=== PATIENT | female | born 1945 | race Caucasian/White ===

== ENCOUNTER → 2023-10-22 11:41 | Outpatient (REF) | payer MEDICARE, OTHER, SELFPAY ==
[2023-10-22 13:26] LABS: % Basophils 0.3 % (0-2); % Eosinophils 5.1 % (0-6); % Immature Granulocytes 0.1 % (0-0.5); % Lymphocytes 51.3 % (20.5-51.1); % Monocytes 7.1 % (1.7-9.3); % Neutrophils 36.1 % (42.2-75.2); Absolute Eosinophils 0.5 10^3/uL (0-0.7); Absolute Lymphocytes 4.6 10^3/uL (1.2-3.4); Absolute Monocytes 0.6 10^3/uL (0.1-0.6); Absolute Neutrophils 3.2 10^3/uL (1.4-6.5); Hematocrit 38.8 % (37.0-47.0); Hemoglobin 12.7 g/dL (12.0-16.0); Mean Corp Hgb Conc. 32.7 g/dL (33.0-37.0); Mean Corpuscular Volume 88.6 fL (81.0-99.0); Nucleated Red Blood Cells % 0 %; Platelet Count 240 10^3/uL (130-400); Red Blood Cell Count 4.38 10^6/uL (4.20-5.40); Red Cell Dist. Width 14.3 % (11.5-14.5)
[2023-10-22 13:38] LABS: Urine Albumin 1+ (Neg - Trace); Urine Bilirubin 1+ (Negative); Urine Character Clear (Clear); Urine Color Yellow; Urine Glucose Negative (Negative); Urine Ketone Trace (Negative); Urine Leukocyte 1+ (Negative); Urine Nitrite Negative (Negative); Urine Occult Blood Negative (Negative); Urine Urobilinogen Negative (Neg - 1+)
[2023-10-22 13:52] LABS: Urine Bacteria Few (Negative)
[2023-10-22 14:40] LABS: ALT (SGPT) 23 U/L (0-35); AST (SGOT) 32 U/L (14-36); Albumin 4.1 g/dl (3.5-5.0); Alkaline Phosphatase 112 U/L (38-126); Blood Urea Nitrogen 28 mg/dl (7-17); Calcium 9.2 mg/dl (8.4-10.2); Carbon Dioxide 22 mmol/L (22-30); Chloride 101 mmol/L (98-107); Glucose 98 mg/dl (70-99); HDL Cholesterol 88 mg/dl; Iron 126 ug/dl (37-170); LDL Cholesterol, Calculated 94 mg/dl; Potassium 4.5 mmol/L (3.5-5.1); Sodium 130 mmol/L (135-145); Total Cholesterol 220 mg/dl (50-199); Total Protein 7.8 g/dl (6.3-8.2); Triglyceride 194 mg/dl (10-149); Very Low Density Lipoprotein 38 mg/dl (0-30); eGFR 38.03
[2023-10-22 14:49] LABS: Percent Saturation 34 % (20-50); Total Iron Binding Capacity 369 ug/dl (265-497)
[2023-10-22 16:10] LABS: Free T3 3.58 pg/ml (2.77-5.27); Free T4 1.05 ng/dl (0.78-2.19)
[2023-10-22 16:23] LABS: TSH 2.27 uIU/ml (0.47-4.68)
[2023-10-22 16:27] LABS: Ferritin 30.7 ng/ml (11.1-264.0)
[2023-10-24 15:00] LABS: Total T3 (Sendout) 125 ng/dL (80-200)
== END ==
LOC: REG 11:41
PROVIDERS: ATTENDING PHYSICIAN Physician Assistant; FAMILY PHYSICIAN Nurse Practitioner; OTHER PHYSICIAN Specialist; REFERRING PHYSICIAN Internal Medicine Cardiovascular Disease
DX: G89.29 Other chronic pain (principal); E05.90 Thyrotoxicosis, unspecified without thyrotoxic crisis or storm; N17.9 Acute kidney failure, unspecified; N18.31 Chronic kidney disease, stage 3a; I10 Essential (primary) hypertension; N20.0 Calculus of kidney
CPT/HCPCS: 36415; 80053; 80061; 81003; 81015; 82728; 83540; 83550; 84439; 84443; 84480; 84481; 85025

== ENCOUNTER → 2023-11-02 07:22 | Outpatient (REF) | payer MEDICARE, OTHER, SELFPAY ==
[2023-11-02] MEDS: LEXISCAN 0.400000000000000022 MG IV (09:14)
== END ==
LOC: RCS 07:22
PROVIDERS: ATTENDING PHYSICIAN Internal Medicine Cardiovascular Disease; FAMILY PHYSICIAN Nurse Practitioner
DX: G89.29 Other chronic pain (principal); R94.31 Abnormal electrocardiogram [ECG] [EKG]
CPT/HCPCS: 78452; 93017; A9500; J2785

== ENCOUNTER → 2023-11-12 10:18 | Outpatient (REF) | payer MEDICARE, OTHER, SELFPAY ==
[2023-11-12 12:11] LABS: % Basophils 0.1 % (0-2); % Eosinophils 6.8 % (0-6); % Immature Granulocytes 0.3 % (0-0.5); % Lymphocytes 54.7 % (20.5-51.1); % Monocytes 7.8 % (1.7-9.3); % Neutrophils 30.3 % (42.2-75.2); Absolute Eosinophils 0.5 10^3/uL (0-0.7); Absolute Monocytes 0.6 10^3/uL (0.1-0.6); Absolute Neutrophils 2.2 10^3/uL (1.4-6.5); Hematocrit 39.2 % (37.0-47.0); Hemoglobin 12.9 g/dL (12.0-16.0); Mean Corp Hgb Conc. 32.9 g/dL (33.0-37.0); Mean Corpuscular Hgb 28.9 pg (27.0-31.0); Mean Corpuscular Volume 87.7 fL (81.0-99.0); Mean Platelet Volume 9.9 fL (7.4-10.4); Nucleated Red Blood Cells % 0 %; Platelet Count 355 10^3/uL (130-400); Red Blood Cell Count 4.47 10^6/uL (4.20-5.40); Red Cell Dist. Width 15.4 % (11.5-14.5); White Blood Cell Count 7.4 10^3/uL (4.8-10.8)
[2023-11-12 12:38] LABS: ALT (SGPT) 20 U/L (0-35); AST (SGOT) 28 U/L (14-36); Alkaline Phosphatase 114 U/L (38-126); Blood Urea Nitrogen 28 mg/dl (7-17); Carbon Dioxide 21 mmol/L (22-30); Chloride 105 mmol/L (98-107); Glucose 106 mg/dl (70-99); Potassium 4.7 mmol/L (3.5-5.1); Sodium 139 mmol/L (135-145); Total Protein 7.7 g/dl (6.3-8.2); eGFR 45.76
[2023-11-12 13:10] LABS: Erythrocyte Sed Rate 37 mm/hour (0-20)
== END ==
LOC: REG 10:18
PROVIDERS: ATTENDING PHYSICIAN Nurse Practitioner; FAMILY PHYSICIAN Internal Medicine Rheumatology; REFERRING PHYSICIAN Specialist
DX: L40.0 Psoriasis vulgaris (principal); L40.50 Arthropathic psoriasis, unspecified; M79.7 Fibromyalgia; M81.0 Age-related osteoporosis without current pathological fracture; R76.8 Other specified abnormal immunological findings in serum; Z51.81 Encounter for therapeutic drug level monitoring; I10 Essential (primary) hypertension; N18.31 Chronic kidney disease, stage 3a; E87.1 Hypo-osmolality and hyponatremia
CPT/HCPCS: 36415; 80053; 85025; 85652; 86140; 86480

== ENCOUNTER → 2023-12-11 10:26 | Outpatient (REF) | payer MEDICARE, OTHER, SELFPAY ==
[2023-12-11 17:25] LABS: Urine Albumin 1+ (Neg - Trace); Urine Bilirubin Negative (Negative); Urine Character Clear (Clear); Urine Color Yellow; Urine Glucose Negative (Negative); Urine Ketone Negative (Negative); Urine Leukocyte Negative (Negative); Urine Nitrite Negative (Negative); Urine Occult Blood 2+ (Negative); Urine Specific Gravity 1.015 (<1.030); Urine Urobilinogen Negative (Neg - 1+)
[2023-12-11 17:35] LABS: Urine Bacteria Moderate (Negative); Urine Red Blood Cell 0-2 /HPF (0-2); Urine White Cell 0-2 /HPF (0-5)
== END ==
LOC: CLAB 10:26
PROVIDERS: ATTENDING PHYSICIAN Nurse Practitioner
DX: N39.0 Urinary tract infection, site not specified (principal)
CPT/HCPCS: 81003; 81015; 87086

== ENCOUNTER → 2023-12-11 13:50 | Outpatient (REF) | payer MEDICARE, OTHER, SELFPAY | LOC: RAD 13:50 | PROVIDERS: ATTENDING PHYSICIAN Physician Assistant; FAMILY PHYSICIAN Nurse Practitioner | DX: E04.1 Nontoxic single thyroid nodule (principal) | CPT/HCPCS: 76536 ==

== ENCOUNTER → 2023-12-31 12:58 | Outpatient (REF) | payer MEDICARE, OTHER, SELFPAY | LOC: RAD 12:58 | PROVIDERS: ATTENDING PHYSICIAN Internal Medicine Rheumatology; FAMILY PHYSICIAN Nurse Practitioner | DX: M81.0 Age-related osteoporosis without current pathological fracture (principal) | CPT/HCPCS: 77080 ==

== ENCOUNTER → 2024-03-04 14:39 | Outpatient (REF) | payer MEDICARE, OTHER, SELFPAY ==
[2024-03-04 16:42] LABS: % Basophils 0.3 % (0-2); % Eosinophils 6.8 % (0-6); % Immature Granulocytes 0.3 % (0-0.5); % Lymphocytes 45.6 % (20.5-51.1); % Monocytes 10.5 % (1.7-9.3); % Neutrophils 36.5 % (42.2-75.2); Absolute Eosinophils 0.5 10^3/uL (0-0.7); Absolute Lymphocytes 3.4 10^3/uL (1.2-3.4); Absolute Monocytes 0.8 10^3/uL (0.1-0.6); Absolute Neutrophils 2.7 10^3/uL (1.4-6.5); Hematocrit 34.8 % (37.0-47.0); Hemoglobin 11.4 g/dL (12.0-16.0); Mean Corp Hgb Conc. 32.8 g/dL (33.0-37.0); Mean Corpuscular Hgb 29.3 pg (27.0-31.0); Mean Corpuscular Volume 89.5 fL (81.0-99.0); Nucleated Red Blood Cells % 0 %; Platelet Count 292 10^3/uL (130-400); Red Blood Cell Count 3.89 10^6/uL (4.20-5.40); Red Cell Dist. Width 15.4 % (11.5-14.5); White Blood Cell Count 7.3 10^3/uL (4.8-10.8)
[2024-03-04 17:00] LABS: C-Reactive Protein < 5.00 mg/L (0.0-10.00)
[2024-03-04 17:10] LABS: ALT (SGPT) 19 U/L (0-35); AST (SGOT) 28 U/L (14-36); Albumin 3.8 g/dl (3.5-5.0); Alkaline Phosphatase 135 U/L (38-126); Blood Urea Nitrogen 25 mg/dl (7-17); Carbon Dioxide 24 mmol/L (22-30); Chloride 103 mmol/L (98-107); Glucose 101 mg/dl (70-99); Sodium 140 mmol/L (135-145); Total Bilirubin 0.7 mg/dl (0.2-1.3); Total Protein 7.3 g/dl (6.3-8.2); eGFR 56.95
[2024-03-04 17:40] LABS: Erythrocyte Sed Rate 42 mm/hour (0-20)
== END ==
LOC: REG 14:39
PROVIDERS: ATTENDING PHYSICIAN Internal Medicine Rheumatology; FAMILY PHYSICIAN Nurse Practitioner
DX: L40.50 Arthropathic psoriasis, unspecified (principal); M05.9 Rheumatoid arthritis with rheumatoid factor, unspecified; M79.7 Fibromyalgia; M81.0 Age-related osteoporosis without current pathological fracture; R76.8 Other specified abnormal immunological findings in serum; Z51.81 Encounter for therapeutic drug level monitoring
CPT/HCPCS: 36415; 80053; 85025; 85652; 86140

== ENCOUNTER → 2024-04-22 15:04 | Outpatient (REF) | payer MEDICARE, OTHER, SELFPAY ==
[2024-04-22 16:39] LABS: % Basophils 0.2 % (0-2); % Immature Granulocytes 0.3 % (0-0.5); % Lymphocytes 35.1 % (20.5-51.1); % Monocytes 9.1 % (1.7-9.3); % Neutrophils 50.3 % (42.2-75.2); Absolute Eosinophils 0.5 10^3/uL (0-0.7); Absolute Lymphocytes 3.3 10^3/uL (1.2-3.4); Absolute Monocytes 0.9 10^3/uL (0.1-0.6); Absolute Neutrophils 4.7 10^3/uL (1.4-6.5); Hematocrit 36.6 % (37.0-47.0); Hemoglobin 11.7 g/dL (12.0-16.0); Mean Corpuscular Hgb 28.7 pg (27.0-31.0); Mean Corpuscular Volume 89.7 fL (81.0-99.0); Mean Platelet Volume 9.6 fL (7.4-10.4); Nucleated Red Blood Cells % 0 %; Platelet Count 236 10^3/uL (130-400); Red Blood Cell Count 4.08 10^6/uL (4.20-5.40); Red Cell Dist. Width 16.1 % (11.5-14.5); White Blood Cell Count 9.4 10^3/uL (4.8-10.8)
[2024-04-22 16:54] LABS: ALT (SGPT) 20 U/L (0-35); AST (SGOT) 25 U/L (14-36); Iron 74 ug/dl (37-170)
[2024-04-22 17:03] LABS: Percent Saturation 20 % (20-50); Total Iron Binding Capacity 365 ug/dl (265-497)
[2024-04-22 17:12] LABS: Free T3 4.21 pg/ml (2.77-5.27); Free T4 0.97 ng/dl (0.78-2.19)
[2024-04-22 17:25] LABS: TSH 5.96 uIU/ml (0.47-4.68)
[2024-04-22 17:29] LABS: Ferritin 24.1 ng/ml (11.1-264.0)
[2024-04-25 03:21] LABS: Total T3 (Sendout) 133 ng/dL (80-200)
== END ==
LOC: REG 15:04
PROVIDERS: ATTENDING PHYSICIAN Physician Assistant
DX: E05.90 Thyrotoxicosis, unspecified without thyrotoxic crisis or storm (principal); N18.30 Chronic kidney disease, stage 3 unspecified; F41.9 Anxiety disorder, unspecified
CPT/HCPCS: 36415; 82728; 83540; 83550; 84439; 84443; 84450; 84460; 84480; 84481; 85025

== ENCOUNTER → 2024-06-23 14:12 | Outpatient (REF) | payer MEDICARE, OTHER, SELFPAY | LOC: HWRAD 14:12 | PROVIDERS: ATTENDING PHYSICIAN Nurse Practitioner Family | DX: R05.9 Cough, unspecified (principal) | CPT/HCPCS: 71046 ==

== ENCOUNTER → 2024-07-23 14:29 | Outpatient (REF) | payer MEDICARE, OTHER, SELFPAY ==
[2024-07-23 15:28] LABS: Urine Albumin 3+ (Neg - Trace); Urine Bilirubin Negative (Negative); Urine Character Slightly Cloudy (Clear); Urine Color Yellow; Urine Glucose Negative (Negative); Urine Ketone Negative (Negative); Urine Leukocyte 3+ (Negative); Urine Nitrite Negative (Negative); Urine Occult Blood 4+ (Negative); Urine Specific Gravity 1.015 (<1.030); Urine Urobilinogen Negative (Neg - 1+)
[2024-07-23 15:52] LABS: Urine Bacteria Few (Negative); Urine Red Blood Cell 26-30 /HPF (0-2); Urine White Cell 70-80 /HPF (0-5)
== END ==
LOC: REG 14:29
PROVIDERS: ATTENDING PHYSICIAN Urology
DX: R39.9 Unspecified symptoms and signs involving the genitourinary system (principal)
CPT/HCPCS: 81003; 81015; 87086

== ENCOUNTER → 2024-08-01 14:03 | Outpatient (REF) | payer MEDICARE, OTHER, SELFPAY | LOC: HWRAD 14:03 | PROVIDERS: ATTENDING PHYSICIAN Urology | DX: R39.9 Unspecified symptoms and signs involving the genitourinary system (principal); M54.9 Dorsalgia, unspecified; R30.0 Dysuria | CPT/HCPCS: 76775 ==

== ENCOUNTER → 2024-08-29 16:36 | Outpatient (REF) | payer MEDICARE, OTHER, SELFPAY | LOC: HWRAD 16:36 | DX: J18.9 Pneumonia, unspecified organism (principal) | CPT/HCPCS: 71046 ==

== ENCOUNTER → 2024-09-08 13:00 | Outpatient (REF) | payer MEDICARE, OTHER, SELFPAY ==
[2024-09-08 16:28] LABS: % Basophils 0.5 % (0-2); % Eosinophils 1.8 % (0-6); % Immature Granulocytes 3.4 % (0-0.5); % Neutrophils 61.3 % (42.2-75.2); Absolute Basophils 0.1 10^3/uL (0-0.2); Absolute Eosinophils 0.2 10^3/uL (0-0.7); Absolute Immature Granulocytes 0.4 10^3/uL (0-0.05); Absolute Lymphocytes 2.7 10^3/uL (1.2-3.4); Absolute Neutrophils 6.9 10^3/uL (1.4-6.5); Hematocrit 38.4 % (37.0-47.0); Hemoglobin 12.2 g/dL (12.0-16.0); Mean Corp Hgb Conc. 31.8 g/dL (33.0-37.0); Mean Corpuscular Hgb 29.4 pg (27.0-31.0); Mean Corpuscular Volume 92.5 fL (81.0-99.0); Mean Platelet Volume 10.6 fL (7.4-10.4); Nucleated Red Blood Cells % 0.2 %; Platelet Count 329 10^3/uL (130-400); Red Blood Cell Count 4.15 10^6/uL (4.20-5.40); Red Cell Dist. Width 16.6 % (11.5-14.5); White Blood Cell Count 11.3 10^3/uL (4.8-10.8)
[2024-09-08 16:36] LABS: ALT (SGPT) 31 U/L (0-35); AST (SGOT) 44 U/L (14-36); Albumin 3.3 g/dl (3.5-5.0); Alkaline Phosphatase 142 U/L (38-126); Blood Urea Nitrogen 30 mg/dl (7-17); Calcium 8.9 mg/dl (8.4-10.2); Carbon Dioxide 29 mmol/L (22-30); Chloride 100 mmol/L (98-107); Glucose 103 mg/dl (70-99); Iron 90 ug/dl (37-170); Potassium 4.8 mmol/L (3.5-5.1); Sodium 135 mmol/L (135-145); Total Bilirubin 1.2 mg/dl (0.2-1.3); Total Protein 6.4 g/dl (6.3-8.2); eGFR 34.79
[2024-09-08 16:45] LABS: Percent Saturation 40 % (20-50); Total Iron Binding Capacity 225 ug/dl (265-497)
[2024-09-08 16:53] LABS: Vitamin D, 25-OH*** 33.3 ng/mL (30-80)
[2024-09-08 17:06] LABS: TSH Reflex To Free T4 3.16 uIU/ml (0.47-4.68)
[2024-09-08 17:42] LABS: Folate > 20.0 ng/ml (2.76-20); Vitamin B12 666 pg/ml (239-931)
== END ==
LOC: HWLAB 13:00
DX: I95.1 Orthostatic hypotension (principal); R42 Dizziness and giddiness; D64.9 Anemia, unspecified; M47.816 Spondylosis without myelopathy or radiculopathy, lumbar region; M70.62 Trochanteric bursitis, left hip; N18.30 Chronic kidney disease, stage 3 unspecified
CPT/HCPCS: 36415; 80053; 82306; 82607; 82728; 82746; 83540; 83550; 84443; 85025

== ENCOUNTER → 2024-09-19 15:47 | Outpatient (REF) | payer MEDICARE, OTHER, SELFPAY | LOC: HWRAD 15:47 | DX: M25.521 Pain in right elbow (principal); M25.511 Pain in right shoulder | CPT/HCPCS: 73030; 73080 ==

== ENCOUNTER → 2024-11-14 13:35 | Outpatient (REF) | payer MEDICARE, OTHER, SELFPAY | LOC: HWRCS 13:35 | DX: I95.1 Orthostatic hypotension (principal); R42 Dizziness and giddiness | CPT/HCPCS: 93306 ==

== ENCOUNTER 2024-12-23 18:04 | Inpatient (IN) | payer MEDICARE, OTHER, SELFPAY ==
[2024-12-23] VITALS (8 sets, daily range): BP systolic 95–129; BP diastolic 38–73; BMI 38.3; BMI 36.6
[2024-12-23 14:22] LABS: Urine Character Slightly Cloudy (Clear)
[2024-12-23 14:45] LABS: Hematocrit 28.2 % (37.0-47.0); Hemoglobin 9.3 g/dL (12.0-16.0); Mean Corp Hgb Conc. 33.0 g/dL (33.0-37.0); Mean Corpuscular Volume 93.4 fL (81.0-99.0); Platelet Count 247 10^3/uL (130-400); Red Cell Dist. Width 19.3 % (11.5-14.5)
[2024-12-23 14:51] LABS: ALT (SGPT) 16 U/L (0-35); AST (SGOT) 28 U/L (14-36); Albumin 3.3 g/dl (3.5-5.0); Alkaline Phosphatase 115 U/L (38-126); Blood Urea Nitrogen 100 mg/dl (7-17); Calcium 7.7 mg/dl (8.4-10.2); Carbon Dioxide 9 mmol/L (22-30); Chloride 108 mmol/L (98-107); Estimated Creatinine Clearance 7 ml/min; Glucose 106 mg/dl (70-99); Potassium 5.8 mmol/L (3.5-5.1); Sodium 136 mmol/L (135-145); Total Protein 6.4 g/dl (6.3-8.2); eGFR 5.39
[2024-12-23 15:28] LABS: Normal RBC Morphology No; Platelets Checked Yes
[2024-12-23 15:30] LABS: Acanthocytes 1+; Anisocytosis 1+; Macrocytosis 1+; Total Cells Counted 100
[2024-12-23 15:34] LABS: Absolute Neutrophils -Man Diff 0.6 10^3/uL (1.4-6.5)
--- NOTE | 2024-12-23 15:49 | ED.GENMED ---
History of Present Illness
General
Chief Complaint: Change in Mental Status
Source: patient
Exam Limitations: none
Time Seen by Provider: 12/23/24 14:54
Nursing documentation reviewed up to this point in time: agreed with
History of Present Illness
History of Present Illness:
Patient presents to ED for an evaluation after she lost balance in her backyard, and fell onto her side. Patient with recent fall and subsequent left shoulder fracture, being treated conservatively with arm sling, states that her pain is worse
after the fall. Denies any other injuries. Of note, patient has experienced confusion over the past couple weeks, noted by family members. In addition, patient has ongoing painful mouth ulcers, which has not improved with antibiotics. Denies
fever or chills. Denies coughing. Denies vomiting or diarrhea. Denies dizziness. Denies headache. In addition, recent outpatient blood work had revealed slight worsening of renal function.
Past History
Past History
ED Past Medical History: HTN, Hypercholesterolemia, Other (rheumatoid arthritis) and Other (Hypertension hyperlipidemia rheumatoid arthritis cholecystectomy hysterectomy bilateral knee replacements chronic back pain with a stimulator and pain
management,)
ED Past Surgical History: Cholecystectomy, Gynecological (Hysterectomy) and Other (Abdominoplasty, knee surgery )
Social History
Tobacco: Non-smoker
Alcohol: Occasional
Drug: None
Personal:
Living: with family
Family History
Family History: Other (Father with prostate cancer mother with breast cancer)
Review of Systems
Review of Systems
Allergies reviewed?: Yes
All Other Systems: ROS reviewed and negative except as documented in HPI and ROS
Constitutional: Reports no symptoms
Respiratory: Reports no symptoms
Cardiac: Reports no symptoms
ABD/GI: Reports no symptoms; Denies nausea or vomiting
Musculoskeletal: Reports other (shoulder pain)
Skin: Reports other (mouth ulcer)
Neurological: Reports other (confusion); Denies dizzy, headache or weakness
Phy Exam
Physical Exam
Physical Exam:
Physical Exam
General: mild painful distress, not acutely ill. afebrile
Head: nc/at. eomi
Neck: supple. normal range of motion
Heart: s1/s2 regular rate and rhythm
Lungs: no acute respiratory distress. clear bilaterally
Abdomen: normal bowel sounds. not tender.
Neuro: alert and oriented x 3. no focal neurological deficits
Skin: no rash
Psychiatric: well kept. interactive and cooperative
Extremities: diffuse left/right shoulder tenderness to palpation without obvious deformity.
Course
Orders/Labs/Results
Orders:
Orders
12/23/24 Breakfast
Regular
At Your Request: Full Participation
12/23/24 14:10
Electrocardiogram (*1) Urgent
Reason for Study: Other
Other Reason for Exam: Possible Sepsis
Cardiac Monitoring- Treatment ONCE
EKG- Treatment ONCE
O2 Therapy [RESP] Urgent
Titrate/Wean O2 to maintain O2 sat greater than (%): 93
Special Instructions: TO MAINTAIN CONTINUOUS O2 SATS > OR = 93%
Pulse Ox/cont/shift [RESP] Urgent
Quantity: 1
Special Instructions: CONTINUOUS
12/23/24 14:11
Complete Blood Count/With Diff Urgent
Comprehensive Metabolic Panel Urgent
Ferritin Urgent
Comment: ADD ON
Folate Urgent
Comment: ADD ON
Iron Urgent
Comment: ADD ON
Manual Differential Urgent
Total Iron Binding Urgent
Comment: ADD ON
Urinalysis Reflex To Culture Urgent
Date Specimen was Collected: 12/23/24
Time Specimen was Collected: 14:10
Urine Microscopic Reflex Cult Urgent
Vitamin B12 Urgent
Comment: ADD ON
12/23/24 15:40
0.9% Sodium Chloride 1000 ml [Nss] 1,000 ml IV BOLUS
12/23/24 16:00
Acetaminophen [Tylenol] 650 mg PO NOW STA
12/23/24 16:37
Add On- LAB Urgent
Tests Added?: iron, ferritin, tibc, folate, vit b12
12/23/24 16:58
Protein/Creat Ratio (Random) Routine
Urine Creatinine Routine
Urine Sodium Routine
Renal Only US [US Renal Only W/O Bladder] Routine
Comment:
Reason For Exam: NADIRA
12/23/24 17:00
Sterile Water For Inj [Sterile Water For Injection 1000 ml] 1,000 ml Sodium Bicarbonate 150 meq IV 125 mls/hr
12/23/24 17:03
Admit/Transfer Patient As Directed
Co-Sign Provider:
Level of Care: Inpatient admission
Assign to:: Telemetry
Physician / Group: Donna
Diagnosis: NADIRA, Hyperkalemia, Metabolic Acidosis
Reason for Telemetry: Arrhythmia
Date to Stop Telemetry: 12/26/24
Time to Stop Telemetry: 11:00
Reason for Hospitalization: IVFs
Expected length of stay greater than two midnights?: Yes
ELOS- Estimated Length of Stay in days: 3
I certify the patient meets the requirements for IP care: Yes
PRN Pain Medication Management As Directed
May give lesser potent ordered pain med per pt: Yes
preference::
Protocol:: Medication orders for pain may be administered in a
manner that supports deferring to patient preference
when the pt is:
- Requesting an ordered lesser potent pain medication.
Least to most potent pain medications are defined
as: acetaminophen < NSAID < tramadol < opioids
(morphine, oxycodone, hydromorphone).
- Requesting a lesser dose of the same medication IF
ORDERED.
- Requesting a less intrusive route of administration
if both routes are prescribed by the provider (PO <
IV).
12/23/24 17:04
Code Status As Directed
Resuscitation Status: Full Code
12/23/24 17:34
COVID-19 Antigen Urgent
Source: Nasal Swab
Blood Culture Q30M
MOLINA Source: Blood/Venous
Specimen Description:
Blood Culture Q30M
MOLINA Source: Blood/Venous
Specimen Description:
12/23/24 17:41
Obtain Records As Directed
Dates of Information to be Released: September 2024
Type of Information Requested: Lab Results
If Other, list type of info requested: Viral and Bacteria Culture from Oral Lesions
Obtain Records from: [facility]
12/23/24 18:14
Oxycodone [Roxicodone] 5 mg PO Q4HPRN PRN
12/26/24 11:00
DC Protocol for Telemetry ONCE
Abnormal Lab Results
12/23/24
14:11
WBC 1.3 L* 10^3/uL
(4.8-10.8)
RBC 3.02 L 10^6/uL
(4.20-5.40)
Hgb 9.3 L g/dL
(12.0-16.0)
Hct 28.2 L %
(37.0-47.0)
RDW 19.3 H %
(11.5-14.5)
Abs Neuts (Manual) 0.6 L* 10^3/uL
(1.4-6.5)
Band Neutrophils 7 H %
(0-3)
Potassium 5.8 H mmol/L
(3.5-5.1)
Chloride 108 H mmol/L
(98-107)
Carbon Dioxide 9 L* mmol/L
(22-30)
BUN 100 H mg/dl
(7-17)
Creatinine 7.1 H* mg/dL
(0.6-1.0)
Glucose 106 H mg/dl
(70-99)
Calcium 7.7 L mg/dl
(8.4-10.2)
TIBC 210 L ug/dl
(265-497)
% Saturation 19 L %
(20-50)
Ferritin 722.0 H ng/ml
(11.1-264.0)
Albumin 3.3 L g/dl
(3.5-5.0)
Ur Occult Blood Reflex 2+ A
(Negative)
Urine Bilirubin 1+ A
(Negative)
Urine RBC 7-10 A /HPF
(0-2)
Urine Albumin (Reflex) 3+ A
(Neg - Trace)
12/23/24 14:11
12/23/24 14:11
Vital Signs
Initial and Last Documented VS:
Initial Vital Signs
Pulse BP
79 129/42
12/23/24 13:26 12/23/24 13:26
Last Documented Vital Signs
Temp Pulse Resp BP Pulse Ox
98.9 F 74 15 95/73 100
12/23/24 13:30 12/23/24 17:45 12/23/24 17:45 12/23/24 17:00 12/23/24 17:30
MDM/Problems Addressed
MDM/Problems Addressed:
History and exam, along with blood work concerning for acute renal failure on chronic renal insufficiency with metabolic acidosis, likely secondary to poor oral intake and dehydration. No evidence of infection noted on exam. No indication for
antibiotics. Patient will be provided with IV fluids and to be admitted for further evaluation and treatment. Patient remains afebrile, hemodynamically stable, and mentally competent during observation.
*Pulse Oximetry
SaO2: 97
Oxygen Mode of Delivery: Room air
Patient hypoxic: no
*Critical Care Note
Total Time (30-74mins, 75-104mins- exclusive of procedures): Not Applicable
ED Attending Note
-
Portions of this chart may have been created with voice recognition software.� Occasional wrong word or��sound alike� substitutions may have occurred due to the inherent limitations of voice recognition software.
Discharge Plan
Departure
Patient Disposition: Admit
Date of Disposition: 12/23/24
Time of Disposition: 15:52
Admit to: Telemetry
Presentation/result/management discussed w/ accepting MD/DO: Hospitalist
Discharge Problem:
Acute renal failure (ARF), Metabolic acidosis, Oral ulcer
Interventions
Interventions:
*Risk Screen - Suicide Last Done: 12/23/24 13:30
*General Assessment Last Done: 12/23/24 13:30
*Neglect/Abuse Screening Last Done: 12/23/24 13:30
*ED COVID-19 Vaccine History Last Done: 12/23/24 13:42
ED- Neurological Assessment Last Done: 12/23/24 14:21
ED- Cardiac Assessment Last Done: 12/23/24 14:26
ED Swallowing Screen Last Done: 12/23/24 16:10
[2024-12-23] MEDS: NSS 1000 IV (16:11)
[2024-12-23] MEDS: TYLENOL 650 MG PO (16:11)
--- NOTE | 2024-12-23 16:23 | W.CON.NEPH ---
Consultation
-
Date/Time Consultation Requested: 12/23/2024 4 PM
Date/Time Consultation Performed: 12/23/2024 4 PM
Requesting Provider: Dr. Thompson
Performing Provider: Dr. Canada
Reason for Consultation: NADIRA
Medical History
-
Chief Complaint: Failure to thrive
History of Present Illness:
This is a 79-year-old female who is well-known to me as an outpatient for chronic kidney disease stage IIIb, baseline creatinine running approximately 1.2�1.5. She seems to have some chronic mild proteinuria as an outpatient. She has hypertension
previously on a multidrug regimen though currently only on a mild therapy regimen with metoprolol. She had previously been on losartan though this was discontinued because of orthostasis and beta-fadi was used for palpitations. She no longer
has significant orthostasis by her report. She has longstanding rheumatoid arthritis on methotrexate with folic acid. This has been stable. About 2 months ago she developed oral ulcers and her oral intake precipitously dropped. By her 's
report she has probably lost 15 pounds or more in those 8 weeks time. About 2 weeks ago she had start Aricept for memory but this did cause diarrhea for 5 days before it was identified as the cause and discontinued. She then had a fall at physical
therapy on and was recommended to take Motrin 600 mg every 6 hours which she did for the next 2 days time. She discontinued Motrin on Sunday. Because of persistent failure to thrive he was brought to the emergency room for evaluation.
Her creatinine was noted to be elevated at 7.1 with a BUN 100 and bicarbonate 9. She also had hyperkalemia at 5.8. She also is leukopenic.
Past Medical History
chronic back pain on chronic oral opiates
RA
HTN
HLD
GERD
morbid obesity
anxiety
depression
restless leg syndrome
Bilateral knee replacements
Back stimulator patient does not have currently on or charged
Left rotator cuff repair by Dr. Orlando December 2022
Cholecystectomy
Hysterectomy
Abdominoplasty
Social History
Tobacco: Non-Smoker
Alcohol: Occasional
Family History
Family History: Cancer
Allergies / Home Medications
Allergy/AdvReac Type Severity Reaction Status Date / Time
iodine Allergy Anaphylaxis Verified 12/23/24 13:29
morphine (Morphine) Allergy Rash Verified 12/23/24 13:29
�Medication �Instructions �Recorded �Confirmed �Type
duloxetine 60 mg capsule,delayed 60 mg PO HS Neurological Condition 01/27/19 12/23/24 History
release
rosuvastatin 40 mg tablet (Crestor) 40 mg PO HS High Cholesterol 01/27/19 12/23/24 History
aripiprazole 5 mg tablet 2.5 mg PO HS Neurological Condition 04/27/23 12/23/24 History
folic acid 1 mg tablet 1 mg PO HS Supplement 04/27/23 12/23/24 History
methimazole 5 mg tablet 2.5 mg PO Q48H@2000 Hormonal Agent 04/27/23 12/23/24 History
cetirizine 10 mg tablet (Zyrtec) 10 mg PO DAILY 12/23/24 12/23/24 History
diphenhydramine HCl 25 mg capsule 25 mg PO DAILYPRN PRN ALLERGIES 12/23/24 12/23/24 History
(Benadryl)
donepezil 5 mg tablet 5 mg PO HS 12/23/24 12/23/24 History
methotrexate sodium 2.5 mg tablet 15 mg PO MO 12/23/24 12/23/24 History
metoprolol succinate 25 mg 25 mg PO BID 12/23/24 12/23/24 History
tablet,extended release 24 hr
(Toprol XL)
mirabegron 50 mg tablet,extended 50 mg PO DAILY 12/23/24 12/23/24 History
release 24 hr (Myrbetriq)
oxycodone 10 mg tablet 10 mg PO TIDPRN PRN SEVERE PAIN 12/23/24 12/23/24 History
pantoprazole 20 mg tablet,delayed 20 mg PO DAILY 12/23/24 12/23/24 History
release (Protonix)
sennosides 8.6 mg tablet (senna) 8.6 mg PO BIDPRN PRN CONSTIPATION 12/23/24 12/23/24 History
Physical Exam
Vital Signs
Vital Signs
Temp Pulse Resp BP Pulse Ox
98.9 F 76 20 116/38 99
12/23/24 13:30 12/23/24 16:15 12/23/24 16:15 12/23/24 16:01 12/23/24 16:15
Lab Results
WBC 1.3 10^3/uL (4.8-10.8) L* 12/23/24 14:11
RBC 3.02 10^6/uL (4.20-5.40) L 12/23/24 14:11
Hgb 9.3 g/dL (12.0-16.0) L 12/23/24 14:11
Hct 28.2 % (37.0-47.0) L 12/23/24 14:11
Plt Count 247 10^3/uL (130-400) 12/23/24 14:11
Sodium 136 mmol/L (135-145) 12/23/24 14:11
Potassium 5.8 mmol/L (3.5-5.1) H 12/23/24 14:11
Chloride 108 mmol/L (98-107) H 12/23/24 14:11
Carbon Dioxide 9 mmol/L (22-30) L* 12/23/24 14:11
BUN 100 mg/dl (7-17) H 12/23/24 14:11
Creatinine 7.1 mg/dL (0.6-1.0) H* 12/23/24 14:11
eGFR 5.39 12/23/24 14:11
Glucose 106 mg/dl (70-99) H 12/23/24 14:11
Calcium 7.7 mg/dl (8.4-10.2) L 12/23/24 14:11
Albumin 3.3 g/dl (3.5-5.0) L 12/23/24 14:11
Laboratory Tests
09/08/24
13:17
Sodium 135
Potassium 4.8
Carbon Dioxide 29
BUN 30 H
Creatinine 1.5 H
Physical Exam
Patient is awake alert oriented and in no distress. Mood and affect were pleasant, insight and judgment were good. Pupils are equal round and reactive to light, extraocular movements are intact, sclera were anicteric. Hearing was normal, ears and
nose are intact. Oropharynx was dry. Neck was supple with trachea midline and no thyromegaly. Heart was regular rate and rhythm without rubs. Lower extremities without edema. Lungs were clear to auscultation bilaterally and with normal excursion.
Abdomen was soft, nontender, with normal active bowel sounds, and no hepatosplenomegaly. Skin was without rash and with normal turgor.
Data Reviewed
-
Radiology: Image Personally Visualized and interpreted (Shoulder x-ray 12/18/2024 by my reading no fracture)
Ultrasound: Report Reviewed by me (Renal ultrasound 08/01/2024 right kidney 11.3 cm left kidney 10.9 cm, left cyst)
Medical Tests (Nuc Med, Echo etc): Image Personally Visualized and interpreted (EKG 12/23/2024 by reading normal sinus rhythm incomplete right bundle branch block) and Report Reviewed by me (Echocardiogram 11/14/2024 ejection fraction 55% mild )
Labs: Labs Reviewed by me
Old Records: Reviewed
Assessment/Plan
-
Assessment
NADIRA
azotemia
Aphthous ulceration
Poor oral intake
Hyperkalemia
Anion gap metabolic acidosis
Rheumatoid arthritis
Leukopenia
Anemia
Hypertension
Plan
IV fluid resuscitation
Saline bolus
bicarbonate IV fluid infusion
Check fractional excretion sodium
Off NSAIDs
No further diarrhea
Conservative management aphthous ulcers
Encourage oral intake
Check urine protein creatinine ratio
Renal ultrasound
Repeat urinalysis once creatinine has improved
Given the timeline it is possible that she may develop ATN and we will need to trend her creatinine carefully
We discussed the possibility of dialysis if the creatinine fails to improve. I suspect she would except this.
Discussed with patient and family
--- NOTE | 2024-12-23 16:40 | HPS.HSE ---
Family Physician
-
Family Physician: THOMAS Colon
Chief Complaint
-
Increased Confusion
History of Present Illness
Patient is an 79 y/o female past medical history of hypertension, hyperlipidemia, rheumatoid arthritis, hyperthyroidism, anxiety/depression and cognitive impairment who presents with increased confusion. Additional history is obtained from
patient's daughter at the bedside. Patient began experiencing mouth sores back in September. Per daughter they used mouth rise, and PCP did prescribe triamcinolone which patient did not tolerate. Patient was seen at urgent care and scraping was
positive for bacteria and virus for which patient was treated with Augmentin without any improvement. Patient reports poor oral intake due to the mouth pain. Patient was also experiencing diarrhea after starting Aricept which has resolved since
stopping that medication. Last patient sustained a fall injuring her left shoulder. Per family has a small fracture which ortho is managing with a sling and she was instructed to take Motrin for pain. Daughter note patient seemed more
confused on Sunday which she attributed to patient's being out of town and a change in her routine. Today patent sustained another fall outside prompting them to bring her to the emergency department for evaluation. Work-up revealed
Creatinine 7.1.
Medical History
Past Medical History
Past Medical History: Reports Other
Additional Past Medical History:
Essential Hypertension
Hyperlipidemia
CKD Stage III
Rheumatoid Arthritis
Chronic Pain with Opioid Dependence
Hyperthyroidism
Cognitive Impairment
Anxiety/Depression
Overactive Bladder
GERD
Past Surgical History: Reports Other
Additional Past Surgical History:
Left Rotator Cuff Repair
Left Reverse Shoulder Replacement
Bilateral Knee Replacements
Lumbar Fusion
Spinal Pain Stimulator
Abdominoplasty and Breast Reduction
Hysterectomy
Cholecystectomy
Social History
Tobacco: Non-smoker
Alcohol: Occasional
Family History
Family History: Not pertinent
Allergies / Home Medications
Allergies reflects when Allergies were last updated in [employer].
Home Medications with original date entered in [employer]
Allergy/Medication List:
Allergies
Allergy/AdvReac Type Severity Reaction Status Date / Time
iodine Allergy Anaphylaxis Verified 12/23/24 13:29
morphine (Morphine) Allergy Rash Verified 12/23/24 13:29
Home Medications
duloxetine 60 mg capsule,delayed release 60 mg PO HS Neurological Condition 01/27/19
rosuvastatin 40 mg tablet (Crestor) 40 mg PO HS High Cholesterol 01/27/19
aripiprazole 5 mg tablet 2.5 mg PO HS Neurological Condition 04/27/23
folic acid 1 mg tablet 1 mg PO HS Supplement 04/27/23
methimazole 5 mg tablet 2.5 mg PO Q48H@1999 Hormonal Agent 04/27/23
cetirizine 10 mg tablet (Zyrtec) 10 mg PO DAILY 12/23/24
diphenhydramine HCl 25 mg capsule (Benadryl) 25 mg PO DAILYPRN PRN ALLERGIES 12/23/24
methotrexate sodium 2.5 mg tablet 15 mg PO MO 12/23/24
metoprolol succinate 25 mg tablet,extended release 24 hr (Toprol XL) 25 mg PO BID 12/23/24
mirabegron 50 mg tablet,extended release 24 hr (Myrbetriq) 50 mg PO DAILY 12/23/24
oxycodone 10 mg tablet 10 mg PO TIDPRN PRN SEVERE PAIN 12/23/24
pantoprazole 20 mg tablet,delayed release (Protonix) 20 mg PO DAILY 12/23/24
sennosides 8.6 mg tablet (senna) 8.6 mg PO BIDPRN PRN CONSTIPATION 12/23/24
Review of Systems
-
A 12 point ROS was completed and negative except as noted: Yes
Constitutional: Denies Fever or Chills
Respiratory: Denies Cough or Trouble Breathing
Cardiac: Denies Chest Pain or Palpitations
Abdomen/GI: Denies Abdominal Pain, Nausea, Vomiting or Diarrhea
Physical Exam
Vital Signs
Vital Signs
Temp Pulse Resp BP Pulse Ox
98.9 F 76 20 116/38 99
12/23/24 13:30 12/23/24 16:15 12/23/24 16:15 12/23/24 16:01 12/23/24 16:15
Physical Exam
General: Comfortable and Conversant
HEENT: Anicteric and Other
Respiratory: Clear and Non Labored Respirations
Cardiac: S1/S2 and Regular Rhythm
GI: Soft and Non Tender
Rectal: Deferred by Provider
Genito-urinary: Clear Urine
Musculoskeletal: No Clubbing, No Cyanosis and No Edema
Skin: Warm and Dry
Neuro: Awake, Alert, Oriented and Nonfocal/grossly intact
Psych: Calm
Laboratory Results
-
12/23/24 14:11
12/23/24 14:11
Laboratory Results
Total Bilirubin 0.9 mg/dl (0.2-1.3) 12/23/24 14:11
AST 28 U/L (14-36) 12/23/24 14:11
ALT 16 U/L (0-35) 12/23/24 14:11
Alkaline Phosphatase 115 U/L (38-126) 12/23/24 14:11
Data Reviewed
-
Lab Data: Labs Reviewed by me
Impression/Plan
-
Acute Kidney Injury on CKD III
Hyperkalemia
Metabolic Acidosis
-Suspect multifactorial related to poor oral intake, recent diarrhea and NSAID use
-Consult Nephrology
-Continue IVFs with sodium bicarb
-Check renal ultrasound
-Recheck labs in AM
Leukopenia/Neutropenia/Anemia, possibly related to methotrexate
-Hold methotrexate
-Check iron studies, folate, vitamin B12
-Consult Hematology
Aphthous Mouth Ulcers
-Add Magic Mouthwash PRN
Recent Left Shoulder Fracture
-Continue immobilization with sling as per ortho
-Continue Tylenol and Oxycodone prn
-Avoid further NSAIDs
Essential Hypertension
-Continue metoprolol with hold parameters
Hyperlipidemia
-Continue Crestor
Rheumatoid Arthritis
-Hold Methotrexate
Chronic Pain with Opioid Dependence s/p Spinal Stimulator
-Continue oxycodone prn
Hyperthyroidism
-Continue Methimazole
Anxiety/Depression
-Continue Abilify and Duloxetine
GERD
-Continue Protonix
DVT proph: SCDs
Code Status: Full Code
[2024-12-23 17:29] LABS: Iron 40 ug/dl (37-170)
[2024-12-23 17:49] LABS: Total Iron Binding Capacity 210 ug/dl (265-497)
--- NOTE | 2024-12-23 17:58 | W.PN.UPDATE ---
Update Note
Progress Note Update
This is an addendum to H&P written by Kristie Landrum on 12/23/2024. Patient seen and examined independently with PA.
79-year-old female past medical history of CKD 3B, rheumatoid arthritis on methotrexate, chronic pain syndrome/opiate dependence, hypertension, GERD, hyperlipidemia, chronic normocytic anemia, anxiety/depression, restless leg syndrome, presenting
for acute confusion and fall.
Ongoing sores in the mouth. She went to urgent care and had scrapings performed and was treated with Augmentin for 1 week without improvement. She tried triamcinolone mouth rinse without improvement. ENT looked in the throat without any
abnormalities.
Vital signs normal.
Labs show white cell count of 1.3. Hemoglobin of 9.3.
Bicarb of 9. Creatinine of 7.1. Potassium 5.8.
Patient with acute kidney injury, anion gap metabolic acidosis likely secondary to decreased p.o. intake, recent diarrhea, NSAIDs. Bicarb drip, renal ultrasound, bladder scan protocol. Nephrology consulted.
Patient with leukopenia/neutropenia and anemia seems to be related to methotrexate. Check iron studies, B12 and folate. Hematology consulted. Hold methotrexate.
Patient with aphthous ulcers related to immunodeficiency. Already completed antibiotic for bacterial infection. Obtaining records from urgent care since she had culture done there.. May require Valtrex.
[2024-12-23 18:09] LABS: Ferritin 722.0 ng/ml (11.1-264.0)
[2024-12-23] MEDS: SODIUM BICARBONATE 1150 MEQ IV (18:10)
[2024-12-23 18:19] LABS: COVID-19 Antigen Negative (Negative)
[2024-12-23] MEDS: ROXICODONE 5 MG PO (18:38)
[2024-12-23 18:40] LABS: Folate 8.1 ng/ml (2.76-20); Vitamin B12 553 pg/ml (239-931)
[2024-12-23] MEDS: ABILIFY 2.5 MG PO (21:51)
[2024-12-23] MEDS: CRESTOR 40 MG PO (21:51)
[2024-12-23] MEDS: CYMBALTA DELAYED RELEASE 60 MG PO (21:51)
[2024-12-23] MEDS: FOLVITE 1 MG PO (21:51)
[2024-12-23] MEDS: TOPROL XL 25 MG PO (21:51)
--- NOTE | 2024-12-23 22:15 | PTCARENOTE ---
Patient arrived from ED, via stretcher. Patiet slid from stretcher to bed. AAO x 3. VSS. Patient complaining of 6/10 left shoulder pain. IV bicarb running at 125 ml/hr. Wounds noted on assessment including mouth sores and rectal sores. Wound
consulted. Patient incontinent of bowel and bladder. Last BM 12/22/24. Patient belongings accounted for including, phone, phone dermatology physician, left arm sling, sneakers, pants, and shirt. Patient with no medications from home. Patient oriented to room. Bed
alarm in place. Bed in lowest position. Call renee and personal belongings within reach.
.
00
[2024-12-24] VITALS (51 sets, daily range): BP systolic 61–132; BP diastolic 27–95; PULSE 75; O2SAT 98; BMI 38.1; BMI 36.6
--- NOTE | 2024-12-24 04:01 | PTCARENOTE ---
bladder scan for 126 ml. no straight cath intervention.
[2024-12-24] MEDS: SODIUM BICARBONATE 1150 MEQ IV (04:08)
[2024-12-24] MEDS: PROTONIX 20 MG PO (08:04)
[2024-12-24] MEDS: TOPROL XL 25 MG PO (08:04)
[2024-12-24] MEDS: TYLENOL 650 MG PO (08:08)
--- NOTE | 2024-12-24 08:53 | W.PN.HOSP.TC ---
Addendum entered and electronically signed by Ivone Plascencia MD 12/24/24 15:19:
I saw and evaluated the patient independently. I reviewed the resident�s note and agree with findings and plan as documented by Dr. Hernandez.
GENERAL: well developed, well nourished, obese female in no apparent distress
HEENT:NC/AT--dry mucus membranes--no O2
HEART: regular rate and rhythm, +S1, +S2
LUNGS : clear to auscultation bilaterally
ABDOM: soft, nontender, nondistended, + bowel sounds
EXT: no cyanosis, clubbing, or edema
NEUROLOGIC: confused but nonfocal
NADIRA with metabolic acidosis--AGAP 19--possibly due to sepsis--pt immunosuppressed and on MTX for RA--looks clinically dehydrated--likely multifactorial (prerenal-dehydration, postrenal-obstruction but US neg for hydro, renal-from MTX, ATN, NSAID
use, etc)--cont IVF with bicarb--apprec renal--apparently no urine output and now hypotensive--BP dropping--developing sepsis--transfer to IMU--may need pressors, may need HD--agree with noa--blood cultures positive for gm neg bacilli--cont zosyn
and follow cultures
sepsis--Leukopenia in the setting of Gram Negative Bacilli Infection--start zosyn--follow--hold MTX--apprec heme/onc input--follow cultures
Left shoulder pain--Status post fall--there is documentation of previous fracture that ortho is managing--pt should be in sling--she is NOT in sling here--cannot move arm due to pain--would check CT scan left shoulder--may need ortho rec-evaluation
oral ulcers--likely due to MTX--would stop--cont folic acid--magic mouthwash
Rheumatoid Arthritis--STOP methotrexate (home medication)
Chronic Back Pain--limit oxycodone (home medication) due to hypotension
Overactive Bladder--STOP mirabegron
Essential Hypertension--all meds on hold with hypotension
Cognitive Impairment with increasing confusion--possibly due to NADIRA, sepsis, hypotension, or dementia--cont duloxetine, aripiprazole as able
Gastroesophageal Reflux Disease--Continue pantoprazole (home medication)
Hyperlipidemia--Continue rosuvastatin (home medication)
DVT proph
code status--FULL CODE
Dr. Hernandez updated family
Total Critical Care Time 38 minutes. I was immediately available to the patient and staff. I personally examined, reviewed labs, diagnostic images/reports, interpretations, treatment plans, discussed patient care with other providers and family
or caregivers (if patient is unable to make decisions), entered orders as appropriate and documented the medical record.
Original Note:
Today's Communication/Plan
-
Please be aware of patient's prior history of C. diff infection
Transferred to the IMU
Assessment / Plan
Assessment / Plan
Assessment
This is an 79 y/o female with pmhx of Hypertension, Rheumatoid Arthritis on methotrexate, mouth ulcers, CKD 3b, cognitive impairment and recent increasing confusion who presented to the ED on 12/23 following a fall. She was found to have critically
low white blood cell counts, and blood cultures were positive for gram negative bacilli.
Plan
Status post fall
-Pt on Benadryl for allergies. She should stop this medication and be advised that this can contribute to falls
-Ordered CT w/o contrast of left upper extremity
Leukopenia in the setting of Gram Negative Bacilli Infection
-Will closely follow blood cultures
-Given patient's history of chronic methotrexate use and creatinine of 7.1 on admission, ordered Zosyn 2.25gram IV Q6H (Renal dose).
-Patient's blood pressures did decrease during the course of her admission. She was moved to the IMU and given an initial 500mL NS bolus, followed by a 1L bolus when no improvement was shown
-Will re-evalute antibiotic to something more appropriate once blood cultures return
Rheumatoid Arthritis
-STOP methotrexate (home medication)
Chronic Back Pain
-Continue oxycodone (home medication)
Overactive Bladder
-STOP mirabegron
Acute on Chronic Kidney Disease 3B
-Possible prerenal (infection) vs intrarenal (history of Motrin use) vs postrenal (Mirabegron) cause
-Baseline creatinine between 1.2-1.5, 7.1 on admission
-Ordered Bladder scan
-Holding mirabegron
-Consulted with nephrology
Hypertension
-Patient currently with hypotension in the setting of her infection
-HOLD metoprolol (home medication) until BP improves (Current parameters: hold if SBP <120)
Cognitive Impairment with increasing confusion
-Continue duloxetine, aripiprazole
Gastroesophageal Reflux Disease
-Continue pantoprazole (home medication)
Hyperlipidemia
-Continue rosuvastatin (home medication)
Anticipated Discharge: > 48 hours
Subjective/Interval History
-
Date of Service: December 24, 2024
When I went in patient was alone. Her daughter and had been there earlier from her report, but she wasn�t sure where they went or when they would be back. She did say it was alright if I spoke to them about her health. She seemed very
confused, and was able to tell me her date but could not tell me the current date or where she was, even with prompting about day of the week or month. She would occasionally lose focus during the conversation and lapse into silence, and had
some difficulty following conversations and prompting.
I later spoke extensively with her [id number], Dasha via phone. Dasha reported that 8 weeks ago, patient began to have issues with mouth ulcers. They followed up with several physicians, including an urgent care who did a scraping of the
tissue which revealed an unspecified virus and bacteria. The urgent care prescribed her Augmentin, which was completed around 3 weeks ago.
Around 3 weeks ago, the patient also began to experience some mild confusion. They saw her neurologist, who prescribed her aripiprazole. However, patient reported diarrhea not long after which was attributed to this medication. They stopped the
medication after 5 days, and the diarrhea reportedly resolved not long after.
Around 1 week ago, she fell while at home onto her left shoulder, which was previously replaced. Urgent care did an X-ray, which did not reveal any acute fractures. She was started on Motrin at that time. She had another fall at home also onto her
left shoulder on Sunday. This, combined with increasing confusion, ultimately led them to bring the patient to the ED on 12/23/2024.
The daughter also informed me the patient has a personal history of C. Diff infections which may not be present in her chart.
Objective Data
-
Labs:
Laboratory Results
12/24/24
06:00
WBC Pending
Hgb Pending
Hct Pending
Plt Count Pending
Sodium Pending
Potassium Pending
Chloride Pending
Carbon Dioxide Pending
BUN Pending
Creatinine Pending
Glucose Pending
Calcium Pending
Vital Signs:
Vital Signs
Temp Pulse Resp BP Pulse Ox
98.1 F 85 20 84/53 93
12/24/24 07:30 12/24/24 07:30 12/24/24 07:30 12/24/24 07:30 12/24/24 07:30
Review of Systems
-
Unable to obtain full review of systems at this time due to: Acuity (Patient with history of cognitive impairment with increased confusion)
History Source: Patient
EENT: Reports No Symptoms Reported
Respiratory: Reports No Symptoms
Cardiac: Reports No Symptoms
Abdomen/GI: Reports No Symptoms
Musculoskeletal: Reports Joint Pain (Bilateral shoulder pain) and Muscle Pain (Left arm down to elbow)
Physical Exam
-
General: Well Developed, No Apparent Distress and Obese
HEENT: Normocephalic and Atraumatic
Respiratory: Clear to Auscultation (Exam limited by patient's inability to rise from bed without significant pain. Examination of all lung thrasher heard in supine position were clear to auscultation)
Cardiac: Regular Rhythm and S1/S2
Skin: Warm and Dry
Neuro: Awake and Alert (Oriented only to person. )
Psych: Confused
--- NOTE | 2024-12-24 09:24 | CON.ONC ---
Documented by User: THOMAS Portillo 12/24/24 12:46
Consultation
-
Date Consultation Requested: 12/24/24
Date Consultation Performed: 12/24/24
Requesting Provider: Kristie Cox PA-C
Performing Provider: Dr. Frandy Rae
Reason for Consultation: cytopenias
Impression
Impression
a/w acute on chronic cognitive decline, wt loss, mouth ulcers, NADIRA on CKD
leukopenia/neutropenia
anemia
on chronic MTX for RA
mucocytis
Plan
Plan
cytopenias and mucositis likely from MTX toxicity. neutropenic precautions. check MTX level. Would hold off on GCSF until MTX level is clear. continue folic acid. Hold MTX and continue to monitor CBC for recovery, which may take several weeks. I
will also check B12, folate, iron studies, copper, and hemolysis panel. With anemia and NADIRA, I will check SPEP, FLC. If cytopenias persist despite holding MTX then refer to hematology outpatient evaluation. Further management of RA per rheumatology.
Patient History
History of Present Illness
79yo F with chronic cognitive impairment who presents with increased confusion and mechanical fall. She has been taking MTX >10 years for management of her RA. She tells me that her daughter helps her will pill management for safety. Initial
evaluation was notable for NADIRA on CKD, leukopenia, and anemia with WBC 1.3, ANC 600, Hgb 9.3g/dL, and Creatinine 7.1. She has had a decline in oral intake due to mouth ulcers since September 2024 resulting in a 15lb weight loss. She was treated with a
course of Augmentin and triamcinolone mouth rinse without improvement of her mouth sores outpatient. She had a mechanical fall last week. She has been taking NSAIDs for pain since her fall. She has been admitted and started on IVF.
Clinically, she report left shoulder pain controlled with immobility. She denies overt bleeding or typical bruising.
Afebrile, no hypoxia, hypotensive
Past-Medical/Surgical History
PMH
Essential Hypertension
Hyperlipidemia
CKD Stage III
Rheumatoid Arthritis
Chronic Pain with Opioid Dependence
Hyperthyroidism
Cognitive Impairment
Anxiety/Depression
Overactive Bladder
GERD
PSH
Left Rotator Cuff Repair
Left Reverse Shoulder Replacement
Bilateral Knee Replacements
Lumbar Fusion
Spinal Pain Stimulator
Abdominoplasty and Breast Reduction
Hysterectomy
Cholecystectomy
Social never smoker, no ETOH or recreational drugs. retired nurse.
Family daughter breast cancer, father prostate cancer
Patient Medication
�Medication �Instructions �Recorded �Confirmed �Last Taken �Type
duloxetine 60 mg capsule,delayed 60 mg PO HS Neurological Condition 01/27/19 12/23/24 12/22/24 History
release
rosuvastatin 40 mg tablet (Crestor) 40 mg PO HS High Cholesterol 01/27/19 12/23/24 12/22/24 History
aripiprazole 5 mg tablet 2.5 mg PO HS Neurological Condition 04/27/23 12/23/24 12/22/24 History
folic acid 1 mg tablet 1 mg PO HS Supplement 04/27/23 12/23/24 05/13/23 History
methimazole 5 mg tablet 2.5 mg PO Q48H@1999 Hormonal Agent 04/27/23 12/23/24 12/21/24 History
cetirizine 10 mg tablet (Zyrtec) 10 mg PO DAILY Allergies 12/23/24 12/23/24 12/23/24 History
diphenhydramine HCl 25 mg capsule 25 mg PO DAILYPRN PRN ALLERGIES 12/23/24 12/23/24 Unknown History
(Benadryl)
methotrexate sodium 2.5 mg tablet 15 mg PO MO CANCER/ARTHRITIS 12/23/24 12/23/24 12/22/24 History
metoprolol succinate 25 mg 25 mg PO BID Blood Pressure 12/23/24 12/23/24 12/22/24 History
tablet,extended release 24 hr
(Toprol XL)
mirabegron 50 mg tablet,extended 50 mg PO DAILY Urinary Issue 12/23/24 12/23/24 12/23/24 History
release 24 hr (Myrbetriq)
oxycodone 10 mg tablet 10 mg PO TIDPRN PRN SEVERE PAIN 12/23/24 12/23/24 Unknown History
pantoprazole 20 mg tablet,delayed 20 mg PO DAILY GERD 12/23/24 12/23/24 12/23/24 History
release (Protonix)
sennosides 8.6 mg tablet (senna) 8.6 mg PO BIDPRN PRN CONSTIPATION 12/23/24 12/23/24 Unknown History
Active Medications
Generic Name Dose Route Start Last Admin
Trade Name Freq PRN Reason Stop Dose Admin
Acetaminophen 650 mg 12/23/24 20:07 12/24/24 08:08
Acetaminophen 325 Mg Tablet PO 01/20/25 20:06 650 mg
Q4HPRN PRN Administration
mild pain/ fever>100.5F
Aripiprazole 2.5 mg 12/23/24 22:00 12/23/24 21:51
Aripiprazole 5 Mg Tablet PO 01/20/25 21:59 2.5 mg
HS TENISHA Administration
Duloxetine HCl 60 mg 12/23/24 22:00 12/23/24 21:51
Duloxetine Delayed Release 60 Mg Capsule PO 01/20/25 21:59 60 mg
HS TENISHA Administration
Folic Acid 1 mg 12/23/24 22:00 12/23/24 21:51
Folic Acid 1 Mg Tablet PO 01/20/25 21:59 1 mg
HS TENISHA Administration
Sodium Bicarbonate 150 meq/ 1,150 mls @ 125 mls/hr 12/23/24 17:00 12/24/24 04:08
Sterile Water IV 1,150 mls
.Q9H12M TENISHA Administration
Methimazole 2.5 mg 12/24/24 20:00
Methimazole 5 Mg Tablet PO 01/21/25 19:59
Q48H TENISHA
Metoprolol Succinate 25 mg 12/23/24 20:07 12/24/24 08:04
Metoprolol 25 Mg Extended Release Tablet PO 01/20/25 20:06 25 mg
BID TENISHA Administration
Multi-Ingredient Mouthwash/Gargle 10 ml 12/23/24 20:07
Magic (Miracle) Mouthwash 90 Ml Bottle PO
Q6HPRN PRN
mouth pain
Oxycodone HCl 5 mg 12/23/24 18:14 12/23/24 18:38
Oxycodone 5 Mg Regular Release Tablet PO 01/06/25 18:13 5 mg
Q4HPRN PRN Administration
severe pain
Pantoprazole Sodium 20 mg 12/24/24 08:00 12/24/24 08:04
Pantoprazole 20 Mg Delayed Release Tablet PO 01/21/25 07:59 20 mg
DAILY TENISHA Administration
Rosuvastatin Calcium 40 mg 12/23/24 22:00 12/23/24 21:51
Rosuvastatin (Crestor) 40 Mg Tablet PO 01/20/25 21:59 40 mg
HS TENISHA Administration
Sodium Chloride 0 flush 12/23/24 19:00
Sodium Chloride 0.9% (Flush) Syringe IV 01/20/25 18:59
PER PROTOCOL TENISHA
Review of Systems
-
unable to provided ROM due to confusion, history obtained via office records and chart review
Physical Exam
-
General: No Apparent Distress
HEENT: Other (dry mouth); Negative Jaundice
Cardiology: Normal Sinus Rhythm
Pulmonary: Clear
GI: Soft
Extremities: Pulses Present
Neurology: Non Focal
Skin: Warm
Psych: Calm
Labs
Lab Results
WBC 1.3 10^3/uL (4.8-10.8) L* 12/23/24 14:11
RBC 3.02 10^6/uL (4.20-5.40) L 12/23/24 14:11
Hgb 9.3 g/dL (12.0-16.0) L 12/23/24 14:11
Hct 28.2 % (37.0-47.0) L 12/23/24 14:11
MCV 93.4 fL (81.0-99.0) 12/23/24 14:11
MCH 30.8 pg (27.0-31.0) 12/23/24 14:11
MCHC 33.0 g/dL (33.0-37.0) 12/23/24 14:11
RDW 19.3 % (11.5-14.5) H 12/23/24 14:11
Plt Count 247 10^3/uL (130-400) 12/23/24 14:11
MPV 10.1 fL (7.4-10.4) 12/23/24 14:11
Creatinine 7.1 mg/dL (0.6-1.0) H* 12/23/24 14:11
Vital Signs
Vital Signs
Temp Pulse Resp BP Pulse Ox
98.1 F 85 20 84/53 93
12/24/24 07:30 12/24/24 07:30 12/24/24 07:30 12/24/24 07:30 12/24/24 07:30

Documented by User: Frandy Rae MD 12/24/24 13:23
Plan
Plan
cytopenias and mucositis likely from MTX toxicity. neutropenic precautions. check MTX level. Would hold off on GCSF until MTX level is clear. continue folic acid. Hold MTX and continue to monitor CBC for recovery, which may take several weeks. I
will also check B12, folate, iron studies, copper, and hemolysis panel. With anemia and NADIRA, I will check SPEP, FLC. If cytopenias persist despite holding MTX then refer to hematology outpatient evaluation. Further management of RA per rheumatology.
Hematology Addendum:
Patient seen and evaluated and agree w/ [facility] note and plan as outlined
-cytopenias/ mucositis - potentially related to MTX toxicity
-holding MTX w/ level pending
-follow CBC
Will continue to follow with you.
[2024-12-24] MEDS: NSS 250 IV (11:49)
[2024-12-24 12:06] LABS: ALT (SGPT) 15 U/L (0-35); AST (SGOT) 32 U/L (14-36); Albumin 2.5 g/dl (3.5-5.0); Alkaline Phosphatase 116 U/L (38-126); Blood Urea Nitrogen 110 mg/dl (7-17); Calcium 6.5 mg/dl (8.4-10.2); Carbon Dioxide 14 mmol/L (22-30); Chloride 103 mmol/L (98-107); Estimated Creatinine Clearance 7 ml/min; Glucose 86 mg/dl (70-99); LDH 269 U/L (120-246); Potassium 4.5 mmol/L (3.5-5.1); Sodium 132 mmol/L (135-145); Total Protein 5.2 g/dl (6.3-8.2); eGFR 5.21
[2024-12-24 12:12] LABS: Hematocrit 22.1 % (37.0-47.0); Hemoglobin 7.7 g/dL (12.0-16.0); Mean Corp Hgb Conc. 34.8 g/dL (33.0-37.0); Mean Corpuscular Volume 87.7 fL (81.0-99.0); Nucleated Red Blood Cells % 10.0 %; Platelet Count 165 10^3/uL (130-400); Red Cell Dist. Width 18.5 % (11.5-14.5); Reticulocyte Count 0.8 % (0.4-2.8)
[2024-12-24] MEDS: ZOSYN 50 IV (12:50)
--- NOTE | 2024-12-24 13:09 | W.PN.NEPH.PH ---
Today's Communication / Plan
-
Transfer to higher level care in process
IV bolus IV fluids ordered
Cabrera catheter ordered
If no urine output in the next couple hours will need acute renal replacement therapy
Pressor support if unresponsive to fluids
Assessment/Plan
-
Assessment
NADIRA with baseline creatinine of 1.3
azotemia
Aphthous ulceration
Poor oral intake
Hyperkalemia
Anion gap metabolic acidosis
Rheumatoid arthritis
Leukopenia
Anemia
Hypertension
Plan
Off NSAIDs
4+ albumin
Renal ultrasound no obstructive pathology/bladder scan 130 mL
Worsening clinical status hypotensive
Patient is anuric with no improvement in renal function
Patient be transferred to higher level of care
Oncology noted= neutropenia and anemia platelets stable chronic methotrexate
Suspect this is ATN
Cabrera catheter placement
If patient does not start making urine in the next few hours will need to initiate acute hemodialysis
IV fluid bolus ordered
May require pressor support

33 minutes critical care time
-
-
Date of Service: December 24, 2024
CC / HPI / ROS
-
Chief Complaint:
Acute kidney injury
History of Present Illness:
Acute on chronic kidney injury on chronic methotrexate and NSAID use
Review of Systems:
Patient is awake and alert
No chest pain or shortness of breath
An uric
Labs
-
Labs:
WBC 0.6 10^3/uL (4.8-10.8) L* 12/24/24 11:24
RBC 2.52 10^6/uL (4.20-5.40) L 12/24/24 11:24
Hgb 7.7 g/dL (12.0-16.0) L 12/24/24 11:24
Hct 22.1 % (37.0-47.0) L 12/24/24 11:24
Plt Count 165 10^3/uL (130-400) D 12/24/24 11:24
Sodium 132 mmol/L (135-145) L 12/24/24 11:24
Sodium Cancelled 12/24/24 11:24
Potassium 4.5 mmol/L (3.5-5.1) 12/24/24 11:24
Potassium Cancelled 12/24/24 11:24
Chloride 103 mmol/L (98-107) 12/24/24 11:24
Chloride Cancelled 12/24/24 11:24
Carbon Dioxide 14 mmol/L (22-30) L* 12/24/24 11:24
Carbon Dioxide Cancelled 12/24/24 11:24
BUN 110 mg/dl (7-17) H* 12/24/24 11:24
BUN Cancelled 12/24/24 11:24
Creatinine 7.3 mg/dL (0.6-1.0) H* 12/24/24 11:24
Creatinine Cancelled 12/24/24 11:24
eGFR 5.21 12/24/24 11:24
eGFR Cancelled 12/24/24 11:24
Glucose 86 mg/dl (70-99) 12/24/24 11:24
Glucose Cancelled 12/24/24 11:24
Calcium 6.5 mg/dl (8.4-10.2) L* 12/24/24 11:24
Calcium Cancelled 12/24/24 11:24
Albumin 2.5 g/dl (3.5-5.0) L 12/24/24 11:24
Physical Exam
-
Vital Signs:
Vital Signs
Temp Pulse Resp BP Pulse Ox
98.2 F 75 20 89/36 100
12/24/24 11:00 12/24/24 13:07 12/24/24 11:00 12/24/24 13:07 12/24/24 11:00
Respiratory:: Bilateral: Coarse
Lung Excursion:: Normal
Abdomen:: Soft
Bowel Sounds:: Normal
Extremity Edema:: +1: Bilateral:
--- NOTE | 2024-12-24 13:54 | PTCARENOTE ---
patient was transferred to room 429 from [facility] around 11 this morning for neutropenic precautions. pt BP 82/43 HR 77 shortly after in room, notified and pt received IV BOLUS 250ml. bladder scanned 190 at 1200. pt has multiple critical labs creat
7.3, notified and pt to be transferred to IMU for closer monitoring. report given to Siomara and pt transferred to [facility].
[2024-12-24] MEDS: NSS 1000 IV ×3 (14:02→21:34)
--- NOTE | 2024-12-24 14:05 | CM ---
Patient daughter in law indicated that she would be the primary contact due to needing assistance to understand medical issues. Patient daughter in law confirmed that they live with patient and in an in law suite, with ramp and no
stairs. Patient lives with in the unit and has a shower chair and is not able to use a walker due to hx of shoulder replacement on left side and arthritis on the right per daughter in law. Patient PCP is Dr. Doshi and she uses the [facility]
in [place]. Patient daughter in law indicated that patient had been alert and oriented prior to this weekend. Patient now transferred to IMU and daughter is present and enroute. CM will continue to follow for discharge planning needs.
Plan; home with VN vs SNF; pending medical treatment plan
--- NOTE | 2024-12-24 14:06 | PTCARENOTE ---
Pt arrived to IMU for upgraded LOC. BP 74/39, NSS bolus started. latham inserted per order with 150ml yellow urine output. RN updated Dr. Farmer and Resident Dr. Hernandez
--- NOTE | 2024-12-24 15:12 | WOUNDNOTE ---
SACRUM/COCCYX/BUTTOCKS
--- NOTE | 2024-12-24 15:13 | WOUNDNOTE ---
SACRUM/COCCYX/BUTTOCKS
--- NOTE | 2024-12-24 15:19 | WOUNDNOTE ---
[facility] RN note: Patient admitted with increased confusion.
See H&P for complete history.
PMH: Per Physician Note: 79-year-old female past medical history of CKD 3B, rheumatoid arthritis on methotrexate, chronic pain syndrome/opiate dependence, hypertension, GERD, hyperlipidemia, chronic normocytic anemia, anxiety/depression, restless
leg syndrome, presenting for acute confusion and fall.
Wound Location and type/assessment: Patient admitted with open areas to buttocks, likely from moisture. Daughter Angela at bedside and reported that patient had diarrhea recently, resulting in open wounds on skin. Silvadene had been used with good
results. At time of assessment, patient had some open, shallow areas around the buttocks. Edges were slightly macerated. Per chart review, patient has aphthous ulcerations in her mouth. Per daughter, patient has had poor intake due to mouth ulcers.
Heels and sacrum intact.
Appetite: Poor
Pressure redistribution devices in place: Centrella Max Air, turning schedule, heels off-loaded with calves on pillows
Plan: Calazime applied to open areas of buttocks and patient reported relief. Will recommend continued use. Magic mouthwash ordered for mouth ulcers. Will confirm orders with hospitalist and update nurse. Updated care plan and will follow as
needed.
Note to case management of equipment requested for discharge:
Recommend follow up at wound care center upon discharge.
[2024-12-24] MEDS: SODIUM BICARBONATE IV (15:21)
[2024-12-24] MEDS: MAGIC OR MIRACLE MOUTHWASH 10 ML PO (15:32)
[2024-12-24] MEDS: LEVOPHED 250 IV ×2 (15:53→22:56)
[2024-12-24 16:14] LABS: Hematocrit 14.7 % (37.0-47.0); Hemoglobin 5.2 g/dL (12.0-16.0); Mean Corp Hgb Conc. 35.4 g/dL (33.0-37.0); Mean Corpuscular Volume 89.1 fL (81.0-99.0); Platelet Count 92 10^3/uL (130-400); Red Cell Dist. Width 18.6 % (11.5-14.5)
--- NOTE | 2024-12-24 16:33 | CON.INTV ---
Consultation
Consultation Request
Date/Time Consultation Requested: 12/24/24- 30 4:30 PM
Date/Time Consultation Performed: 254:30 PM
Requesting Provider: Hospitalist
Performing Provider: Dr. Stokes
Reason for Consultation: critical care management
Medical History
-
Chief Complaint: hypotension
History of Present Illness:
79-year-old non-smoking female with a history of hypertension, hyperlipidemia, rheumatoid arthritis, hypothyroidism, anxiety and cognitive impairment who presented with increasing confusion-patient had significant neutropenia and anemia related to
methotrexate who developed NADIRA, metabolic acidosis and hyperkalemia and transferred to ICU-commercial specialist consulted for critical care management 12/24/2024. . The patient feels a little weak. She denies any shortness of breath at rest, chest pain,
productive cough or chest congestion. She complains of some mild abdominal pain. Hemodialysis catheter was just placed urgently.
Past Medical History
Past Medical History: None ( Hypertension. Hyperlipidemia. Rheumatoid arthritis. Hypothyroidism. Anxiety/depression. Cognitive impairment. Chronic kidney disease stage III. Chronic pain/opiate dependence. GERD.)
Past Surgical History: None ( Left rotator cuff. Left shoulder replacement. Bilateral knee replacement. Lumbar fusion. Spinal pain stimulator. Abdominoplasty and breast reduction. Hysterectomy. Cholecystectomy.)
Social History
Tobacco: Non-smoker
Alcohol: None
Drug: None
Living: With Family
Occupational Exposures: No known asbestos exposure
Environmental Exposures: no known tuberculosis exposure
Family History
Family History: Reviewed & Not Pertinent
Allergies / Home Medications
Allergies
Allergy/AdvReac Type Severity Reaction Status Date / Time
iodine Allergy Anaphylaxis Verified 12/23/24 13:29
morphine (Morphine) Allergy Rash Verified 12/23/24 13:29
Home Medications
�Medication �Instructions �Recorded �Confirmed �Last Taken �Type
duloxetine 60 mg capsule,delayed 60 mg PO HS Neurological Condition 01/27/19 12/23/24 12/22/24 History
release
rosuvastatin 40 mg tablet (Crestor) 40 mg PO HS High Cholesterol 01/27/19 12/23/24 12/22/24 History
aripiprazole 5 mg tablet 2.5 mg PO HS Neurological Condition 04/27/23 12/23/24 12/22/24 History
folic acid 1 mg tablet 1 mg PO HS Supplement 04/27/23 12/23/24 05/13/23 History
methimazole 5 mg tablet 2.5 mg PO Q48H@1999 Hormonal Agent 04/27/23 12/23/24 12/21/24 History
cetirizine 10 mg tablet (Zyrtec) 10 mg PO DAILY Allergies 12/23/24 12/23/24 12/23/24 History
diphenhydramine HCl 25 mg capsule 25 mg PO DAILYPRN PRN ALLERGIES 12/23/24 12/23/24 Unknown History
(Benadryl)
methotrexate sodium 2.5 mg tablet 15 mg PO MO CANCER/ARTHRITIS 12/23/24 12/23/24 12/22/24 History
metoprolol succinate 25 mg 25 mg PO BID Blood Pressure 12/23/24 12/23/24 12/22/24 History
tablet,extended release 24 hr
(Toprol XL)
mirabegron 50 mg tablet,extended 50 mg PO DAILY Urinary Issue 12/23/24 12/23/24 12/23/24 History
release 24 hr (Myrbetriq)
oxycodone 10 mg tablet 10 mg PO TIDPRN PRN SEVERE PAIN 12/23/24 12/23/24 Unknown History
pantoprazole 20 mg tablet,delayed 20 mg PO DAILY GERD 12/23/24 12/23/24 12/23/24 History
release (Protonix)
sennosides 8.6 mg tablet (senna) 8.6 mg PO BIDPRN PRN CONSTIPATION 12/23/24 12/23/24 Unknown History
Review of Systems
-
Unable to Obtain full review of systems at this time due to: Other ( per HPI)
Vitals / Labs / Diagnostic Testing
Vital Signs
Temp Pulse Resp BP Pulse Ox
98.2 F 75 20 89/36 100
12/24/24 11:00 12/24/24 13:07 12/24/24 11:00 12/24/24 13:07 12/24/24 11:00
Lab Data
12/24/24 15:56
Microbiology
12/23/24 17:34 Blood/Venous Blood Culture - Preliminary
12/23/24 17:34 Blood/Venous Gram Stain - Preliminary
12/23/24 17:34 Blood/Venous Blood Culture - Preliminary
Positive culture in progress
12/23/24 17:34 Blood/Venous Gram Stain - Preliminary
Diagnostic Testing:
Physical Exam
-
Exam:
well-nourished and well-developed in no apparent distress
HEENT-atraumatic, normocephalic
Neck-supple, no JVD, no bruit
Heart-regular rate and rhythm-no murmurs, rubs or gallops
Chest-clear to auscultation, no wheezes, crackles
Back-no tenderness
Abdomen-soft, nontender, nondistended, no hepatosplenomegaly
Extremities-no cyanosis, clubbing, edema and good peripheral pulses
Integument-intact, no rashes, lesions or ecchymosis
Neurology-alert and oriented, nonfocal motor and sensory exam
Assessment
-
79-year-old non-smoking female with a history of hypertension, hyperlipidemia, rheumatoid arthritis, hypothyroidism, anxiety and cognitive impairment who presented with increasing confusion-patient had significant neutropenia and anemia related to
methotrexate who developed NADIRA, metabolic acidosis and hyperkalemia and transferred to ICU-commercial specialist consulted for critical care management 12/24/2024.
NADIRA on top of chronic kidney disease
Hyponatremia
Hypocalcemia
Metabolic acidosis
Neutropenia-WBC 0.4
Mbzzux-vvxyjkfukw-rdkzzkdkjd 5.2
Thrombocytopenia-platelet 92
Pancytopenia thought secondary to methotrexate
Aphthous mouth ulcers
Left shoulder fracture
Bacteremia-blood culture 12/23/2024-positive culture in progress
Conditions present prior to admission:
Hypertension.
Hyperlipidemia.
Rheumatoid arthritis.
Hypothyroidism.
Anxiety/depression.
Cognitive impairment.
Chronic kidney disease stage III.
Chronic pain/opiate dependence. GERD.
Left rotator cuff. Left shoulder replacement. Bilateral knee replacement. Lumbar fusion. Spinal pain stimulator. Abdominoplasty and breast reduction. Hysterectomy. Cholecystectomy.
Plan
Admit patient to medical intensive care unit for persistent hypotension despite fluid resuscitation requiring pressors
Supplement oxygen as needed
High flow oxygen if needed
BiPAP if necessary
Intubate and mechanically ventilate if necessary
Aspiration precautions
Nebulizers if needed
Obtain cultures
Empiric antibiotics-on Zosyn
Consider Infectious disease consultation
Monitor leukocytosis
Nephrology following-correspondence reviewed
Intravenous fluids with bicarb per nephrology
Renal ultrasound summarized below
Trend lactate
Norepinephrine if needed, vasopressin thereafter-MAP goal 65
If persistently hypotensive then consider checking random cortisol-hydrocortisone if random less than 3, if 3-15 then consider ACTH stimulation test
If persistently hyperthermic then correcting hyperthermia can decrease pressor requirements, increased chances of reversal of shock and decrease mortality
Monitor pancytopenia
Transfuse as needed-hemoglobin 5.2
Methotrexate on hold
DVT prophylaxis-mechanical
Early nutrition if possible
Early mobilization/bedside range of motion
Goals of care discussion ongoing with Dr. Plascencia in the family
Critical care statement: A total of 65 minutes of critical care time was provided for this patient today. This includes management of unstable vital signs, evaluation of the patient at bedside, reviewing the patient's pertinent medical records
including radiographs, pressor management microbiology, laboratory evaluations, and discussion with primary team, consultants, pharmacy, nutrition, physical therapy, case management, charge nurse, critical care nursing, and respiratory therapy.
Diagnostic data:
Chest x-ray 08/29/2024-left lower lobe pneumonia
Renal ultrasound 12/24/2024-no evidence for pelvicalyceal dilation bilaterally
Echocardiogram 11/14/2024-EF 55-60%, mild aortic stenosis
Lexiscan stress test 11/02/2023-EF 85%, evidence of inferior soft tissue attenuation but no evidence for ischemia or infarction, low risk study
Data Reviewed
-
EKG: Report reviewed by me
Radiology: Image personally visualized and interpreted and Report reviewed by me
CT Scan: Report reviewed by me
Ultrasound: Report reviewed by me
Old Records: Reviewed
Critical Care Time (in minutes): 65
[2024-12-24 16:44] LABS: ALT (SGPT) < 10 U/L (0-35); AST (SGOT) 20 U/L (14-36); Albumin 1.1 g/dl (3.5-5.0); Alkaline Phosphatase 65 U/L (38-126); Blood Urea Nitrogen 60 mg/dl (7-17); Calcium 3.2 mg/dl (8.4-10.2); Carbon Dioxide 8 mmol/L (22-30); Chloride 122 mmol/L (98-107); Estimated Creatinine Clearance 13 ml/min; Glucose 42 mg/dl (70-99); Potassium 2.3 mmol/L (3.5-5.1); Sodium 137 mmol/L (135-145); Total Protein 2.8 g/dl (6.3-8.2); eGFR 11.77
[2024-12-24 17:01] LABS: Nucleated Red Blood Cells % 10.8 %
[2024-12-24 17:05] LABS: Glucose - Point of Care 77 mg/dl (70-99)
--- NOTE | 2024-12-24 17:27 | PTCARENOTE ---
Pt upgraded to ICU. Levo at 8mc. Report given to Betito TEMPERER.
--- NOTE | 2024-12-24 17:27 | W.PN.UPDATE ---
Update Note
Progress Note Update
Spoke at length with patient's , son, and [id number]. Explained patient is critically ill, plan for hemodialysis. Obtain consent for blood if needed from . Family will get back to us regarding CODE STATUS as she is full code at
this time. I have explained that there is no guarantee that she will make it out of the hospital given how sick she is.
--- NOTE | 2024-12-24 17:49 | PTCARENOTE ---
Update by Hospitalist team. Risk Compliance Analyst patient consult update. HD line placed await xray post vascular access team and PICC placement. Update family transition to ICU from IMU. [facility] team went to [facility] to take update care needs secondary to patient
status. Update with nephrology ongoing conversations HD or possible CRRT. Continue critical care nursing at bedside.
--- NOTE | 2024-12-24 18:02 | PTCARENOTE ---
Patient in sterile procedure await labs, picc placement and follow up chest xray to be reviewed with nephrology and hospitalist team.
[2024-12-24 18:56] LABS: Hematocrit 22.3 % (37.0-47.0); Hemoglobin 7.7 g/dL (12.0-16.0); Mean Corp Hgb Conc. 34.5 g/dL (33.0-37.0); Mean Corpuscular Volume 88.5 fL (81.0-99.0); Platelet Count 164 10^3/uL (130-400); Red Cell Dist. Width 18.6 % (11.5-14.5)
[2024-12-24 18:57] LABS: INR 1.56; PT 19.2 Sec (11.4-14.6)
[2024-12-24 18:58] LABS: APTT 50.6 Sec (23.4-35.0)
--- NOTE | 2024-12-24 19:01 | VATNOTE ---
Attempted PICC line insertion for patient unsuccessfully. Brachial vein accessed and unable to pass the wire. Attempted to access both the cephalic and basilic veins unsuccessfully. Accessed the brachial vein a second time and able to thread the
guidewire through the needle, however, when PICC was inserted 15 cm were unable to be inserted into the patient successfully. The decision was made to exchange the PICC line for a midline until central access could be obtained tomorrow. notified.
--- NOTE | 2024-12-24 19:14 | PTCARENOTE ---
Follow up with sql server consultant team and family. CASH CONTROL SPECIALIST and staff talking with family. They have decided to make patient dnr/dni but to continue with plan of cares.Repeat labs sent. Midline obtained. Family discussed conversion with hospitalist team and
change in level of cares. Await lab results to follow with nephrology. Possible plan for HD treatment tonight. Continue supportive cares, teaching and orient family to Icu plan of cares.
[2024-12-24 19:15] LABS: Nucleated Red Blood Cells % 6.9 %
[2024-12-24 19:32] LABS: ALT (SGPT) 15 U/L (0-35); AST (SGOT) 40 U/L (14-36); Albumin 2.5 g/dl (3.5-5.0); Alkaline Phosphatase 114 U/L (38-126); Blood Urea Nitrogen 101 mg/dl (7-17); Calcium 5.6 mg/dl (8.4-10.2); Carbon Dioxide 15 mmol/L (22-30); Chloride 106 mmol/L (98-107); Estimated Creatinine Clearance 7 ml/min; Glucose 88 mg/dl (70-99); Magnesium 1.9 mg/dl (1.6-2.3); Potassium 4.0 mmol/L (3.5-5.1); Sodium 136 mmol/L (135-145); Total Protein 5.2 g/dl (6.3-8.2); eGFR 5.21
--- NOTE | 2024-12-24 20:00 | PTCARENOTE ---
on assessment pt alert to self only, family at bedside, SR on the monitor, RA 95%, poor appetite, reg diet, pills crushed in apple sauce, latham in place, HD tomorrow morning, NSS order changed to 100 ml/hr and titrating up on levo gtt per orders, SPRINKLING TRUCK DRIVER
made aware,
[2024-12-24] MEDS: CALCIUM GLUCONATE 290 MG IV (20:29)
[2024-12-24] MEDS: MERREM 500 MG IV (20:45)
[2024-12-24] MEDS: STERILE WATER FOR INJECTION 10 ML IV (20:45)
[2024-12-24] MEDS: TOPROL XL PO (20:45)
--- NOTE | 2024-12-24 21:31 | PTCARENOTE ---
pt took two wedding rings home, daughter in law helped remove rings
[2024-12-24] MEDS: FOLVITE 1 MG PO (21:32)
[2024-12-24] MEDS: CRESTOR 40 MG PO (21:32)
[2024-12-24] MEDS: ABILIFY 2.5 MG PO (21:32)
[2024-12-24] MEDS: CYMBALTA DELAYED RELEASE 60 MG PO (21:32)
[2024-12-24] MEDS: TAPAZOLE 2.5 MG PO (22:50)
[2024-12-24] MEDS: ROXICODONE 5 MG PO (22:51)
[2024-12-24] MEDS: CALCIUM GLUCONATE 100 IV (23:12)
[2024-12-25] VITALS (36 sets, daily range): BP systolic 82–124; BP diastolic 26–80; BMI 38.4
--- NOTE | 2024-12-25 00:39 | PTCARENOTE ---
LEVo running through newly placed midline, site checked, IV team unable to place PICC during dayshift, FILM LIBRARIAN made aware of increased titrations on LEVO gtt, no new orders at this time
[2024-12-25] MEDS: LEVOPHED 250 IV ×5 (01:12→11:38)
[2024-12-25 01:46] LABS: Blood Urea Nitrogen 102 mg/dl (7-17); Calcium 7.3 mg/dl (8.4-10.2); Carbon Dioxide 14 mmol/L (22-30); Chloride 103 mmol/L (98-107); Estimated Creatinine Clearance 7 ml/min; Glucose 111 mg/dl (70-99); Magnesium 2.0 mg/dl (1.6-2.3); Potassium 4.5 mmol/L (3.5-5.1); Sodium 131 mmol/L (135-145); eGFR 5.39
[2024-12-25 01:59] LABS: Hematocrit 22.7 % (37.0-47.0); Hemoglobin 8.0 g/dL (12.0-16.0); Mean Corp Hgb Conc. 35.2 g/dL (33.0-37.0); Mean Corpuscular Volume 88.7 fL (81.0-99.0); Platelet Count 153 10^3/uL (130-400); Red Cell Dist. Width 18.8 % (11.5-14.5)
[2024-12-25] MEDS: SODIUM BICARBONATE 50 MEQ IV (02:01)
[2024-12-25] MEDS: CALCIUM GLUCONATE 100 IV (02:01)
--- NOTE | 2024-12-25 03:29 | PTCARENOTE ---
pt increasingly restless, FAMILY PRACTICE MEDICAL DOCTOR made aware, pt YUAN, pupils +3 and PERRLA, follows commands and knows name. call renee in reach and bed alarm on
[2024-12-25] MEDS: MANNITOL 25% 12.5 GRAMS IV ×2 (07:25→08:50)
[2024-12-25] MEDS: FLEXBUMIN 25% FOR HEMODIALYSIS 12.5 GRAMS IV ×2 (07:25→09:00)
--- NOTE | 2024-12-25 07:42 | W.PN.INTV ---
Today's Communication / Plan
Recommendations
hemodialysis
Antibiotics
Transfuse if needed
Pressors
DNR-goals of care discussions ongoing
Assessment
-
79-year-old non-smoking female with a history of hypertension, hyperlipidemia, rheumatoid arthritis, hypothyroidism, anxiety and cognitive impairment who presented with increasing confusion-patient had significant neutropenia and anemia related to
methotrexate who developed NADIRA, metabolic acidosis and hyperkalemia and transferred to ICU-membership manager consulted for critical care management 12/24/2024.
NADIRA on top of chronic kidney disease
Hyponatremia
Hypocalcemia
Metabolic acidosis
Neutropenia-WBC 0.4
Bgjkua-ijuvqgigor-wwphtzbsht 5.2
Thrombocytopenia-platelet 92
Pancytopenia thought secondary to methotrexate
Aphthous mouth ulcers
Left shoulder fracture
Bacteremia-blood culture 12/23/2024-positive culture in progress
Toxic metabolic encephalopathy
Conditions present prior to admission:
Hypertension.
Hyperlipidemia.
Rheumatoid arthritis.
Hypothyroidism.
Anxiety/depression.
Cognitive impairment.
Chronic kidney disease stage III.
Chronic pain/opiate dependence. GERD.
Left rotator cuff. Left shoulder replacement. Bilateral knee replacement. Lumbar fusion. Spinal pain stimulator. Abdominoplasty and breast reduction. Hysterectomy. Cholecystectomy.
Plan
Patient remains critically ill receiving emergent hemodialysis
Supplement oxygen as needed
High flow oxygen if needed
BiPAP if necessary
Patient now DNR-DO NOT INTUBATE
Aspiration precautions
Nebulizers if needed
Cultures reviewed
06/26 blood culture positive-in progress
Empiric antibiotics-on Zosyn
Infectious disease consultation following-correspondence reviewed-reviewed with Dr. Gonzales
Monitor leukopenia
Consider CT abdomen
Nephrology following-correspondence reviewed
Intravenous fluids with bicarb per nephrology
Renal ultrasound summarized below
Trend lactate
Norepinephrine if needed, vasopressin thereafter-MAP goal 65
Emergent hemodialysis 12/25/2024
Monitor pancytopenia
Transfuse as needed-hemoglobin 5.8-msihbwvyw-nfedrc 7.7 and now stable at 8.0
Methotrexate on hold
Hematology following-correspondence reviewed
Methotrexate level pending
DVT prophylaxis-mechanical
Early nutrition if possible
Early mobilization/bedside range of motion
Goals of care discussion ongoing with Dr. Plascencia in the family
Critical care statement: A total of 44 minutes of critical care time was provided for this patient today. This includes management of unstable vital signs, evaluation of the patient at bedside, reviewing the patient's pertinent medical records
including radiographs, pressor management, review of microbiology, laboratory evaluations, and discussion with primary team, consultants, pharmacy, nutrition, physical therapy, case management, charge nurse, critical care nursing, and respiratory
therapy.
Diagnostic data:
Chest x-ray 08/29/2024-left lower lobe pneumonia
Chest x-ray 12/24/2024-no focal consolidation, pleural effusion or pneumothorax, central venous catheter well-positioned - tip in SVC
Renal ultrasound 12/24/2024-no evidence for pelvicalyceal dilation bilaterally
Echocardiogram 11/14/2024-EF 55-60%, mild aortic stenosis
Lexiscan stress test 11/02/2023-EF 85%, evidence of inferior soft tissue attenuation but no evidence for ischemia or infarction, low risk study
Subjective Dataa
Subjective Data
Date of Service:
Date of Service: December 25, 2024
Chief Complaint: Mining Captain Follow Up and Pulmonary Follow Up
Subjective:
confused, no complaints of shortness of breath, chest pain, mild abdominal pain, receiving hemodialysis
Review of Systems
General: Other ( per HPI)
Objective Data
Data Reviewed
Vital Signs / I&O / Oxygen:
Vital Signs
Temp Pulse Resp BP Pulse Ox
98.5 F 96 16 96/63 93
12/25/24 03:04 12/25/24 06:15 12/25/24 06:15 12/25/24 06:15 12/25/24 06:15
Intake and Output
12/24/24 12/25/24 12/26/24
06:59 06:59 06:59
Intake Total 3445.0 / 3445.0
Output Total 220 / 220
Balance 3225.0 / 3225.0
SaO2 93
Physical Exam
General: Respiratory Distress (n) and Comfortable
HEENT: Normocephalic, Anicteric and Moist Mucous Membranes
Cardiovascular: Regular Rhythm and Murmur
Respiratory: Crackles ( rare basilar), Non-Labored Respirations, Accessory Resp Muscle Use and Stridor (n)
GI: Soft, Distended and Tender ( mild tenderness without rebound or guarding mid abdomen)
Neurology: Awake, Alert, No Motor Deficits and Other ( confused)
Skin: Warm, Good Color, Cyanosis (n), Jaundice (n) and Rash (n)
Labs/Micro/Reports
Lab Data
12/25/24 01:10
12/25/24 01:10
Laboratory Results
12/24/24
18:39
PT 19.2 H
INR 1.56
APTT 50.6 H
Microbiology
12/23/24 17:34 Blood/Venous Blood Culture - Preliminary
12/23/24 17:34 Blood/Venous Gram Stain - Preliminary
12/23/24 17:34 Blood/Venous Blood Culture - Preliminary
Positive culture in progress
12/23/24 17:34 Blood/Venous Gram Stain - Preliminary
--- NOTE | 2024-12-25 08:04 | W.PN.ONC ---
Today's Communication / Plan
-
Pancytopenia secondary to MTX toxicity
Methotrexate level pending
G-CSF once methotrexate level cleared
Continue folic acid support continue folic acid
CBC for recovery, which may take several weeks
Currently receiving dialysis
B12, folate normal range
Iron studies anemia of chronic inflammation
Copper pending
SPEP, FLC pending
Doubt hemolysis with stable/declining total bili
Will follow
Impression
Impression
Pancytopenia
Mucositis
MTX for RA
Severe hypocalcemia
Acute renal failure
Plan
Plan
Will continue to follow with you.
Subjective/Objective
Subjective/Objective
Patient offers no verbal responses. Did follow commands.
Vital Signs:
Vital Signs
Temp Pulse Resp BP Pulse Ox
98.5 F 96 16 96/63 93
12/25/24 03:04 12/25/24 06:15 12/25/24 06:15 12/25/24 06:15 12/25/24 06:15
Unchanged severe mucositis
Lab Results:
Laboratory Data
WBC 0.6 10^3/uL (4.8-10.8) L* 12/25/24 01:10
Hgb 8.0 g/dL (12.0-16.0) L 12/25/24 01:10
Plt Count 153 10^3/uL (130-400) 12/25/24 01:10
PT 19.2 Sec (11.4-14.6) H 12/24/24 18:39
INR 1.56 12/24/24 18:39
APTT 50.6 Sec (23.4-35.0) H 12/24/24 18:39
eGFR 5.39 12/25/24 01:10
--- NOTE | 2024-12-25 08:05 | CON.ID ---
Consultation
-
Date/Time Consultation Requested: 12/24/2024 1753
Date/Time Consultation Performed: 12/25/2024 0732
Requesting Provider: Dr. Hernandez
Performing Provider: Dr. Gonzales
Reason for Consultation: Bacteremia; clinical sepsis
Chief Complaint / Past History
History of Present Illness
Helga Braun is an 79-year-old female being evaluated in infectious ease consultation regarding bacteremia. History is obtained from chart review alone as the patient currently could not provide any significant history for me.
The patient has a significant past medical history of rheumatoid arthritis maintained on methotrexate. According to ER history, the patient had sustained a recent fall resulting in a left shoulder fracture and was being managed conservatively by
being placed in the sling. She presented to the emergency room on 12/23 after another fall while in the backyard. The family had reported that she had been developing some increasing confusion over the past several weeks.
Workup in the ER revealed an elevated creatinine/renal failure, and marked neutropenia. She has been admitted to the intensive care unit for further care. She is now on norepinephrine for blood pressure support. Blood cultures obtained at the
time of admission are now positive for gram-negative rods.
Past History
Additional Past Medical History:
HTN
HLD
Rheumatoid arthritis (maintained on methotrexate)
Hypothyroidism
Anxiety/depression
Cognitive impairment
CKD stage III
GERD
Additional Past Surgical History:
Left rotator cuff surgery
Left shoulder surgery
Bilateral knee replacement
Lumbar fusion
Spinal stimulator placement
JOSE
Cholecystectomy
Allergy History:
iodine Allergy (Verified 12/23/24 13:29)
Anaphylaxis
morphine (Morphine) Allergy (Verified 12/23/24 13:29)
Rash
Medications Reviewed: Yes
Current Antibiotics:
Meropenem 500 mg IV every 24 hours
Zosyn (discontinued)
Social History
Tobacco: Non-Smoker
Alcohol: None
Drug: None
Personal:
Living: With Family
Employment: Retired
Family History
Family History: Unable to Obtain
Review of Systems
Vital Signs
Temp Pulse Resp BP Pulse Ox
98.5 F 96 16 96/63 93
12/25/24 03:04 12/25/24 06:15 12/25/24 06:15 12/25/24 06:15 12/25/24 06:15
Physical Exam
Physical Exam
Constitutional: Acutely Ill, Chronically Ill and Obese
Head: Normocephalic
Eyes: Pupils Equal, Pupils Round, No Conjunctival Hemorrhage and Sclera Anicteric
Oral: No Thrush and Other (Oral mucosa dry)
Cardiovascular: S1/S2; Negative S3/S4 or Murmur
Pulmonary: Coarse and Non Labored
Gastrointestinal: Soft, Tender (Mild; in midline area), Non Distended, Normal Bowel Sounds, No Rebound and No Guarding
Genito-Urinary: Cabrera and Turbid Urine; Negative Hematuria
Extremities: Edema; Negative Cyanosis or Erythema
Skin: Warm and Dry; Negative Rash or Jaundice
Neurological: Awake and Alert
Psychological: Calm
Lab / Diagnostic Study Results
12/25/24 01:10
12/25/24 01:10
Abs Immat Gran (auto) 0.0 10^3/uL (0-0.05) 12/24/24 18:39
Absolute Neuts (auto) 0.2 10^3/uL (1.4-6.5) L* 12/24/24 18:39
Absolute Lymphs (auto) 0.2 10^3/uL (1.2-3.4) L 12/24/24 18:39
Absolute Monos (auto) 0.0 10^3/uL (0.1-0.6) L 12/24/24 18:39
Absolute Basos (auto) 0.0 10^3/uL (0-0.2) 12/24/24 18:39
Total Counted 100 12/23/24 14:11
Immature Gran % 1.7 % (0-0.5) H 12/24/24 18:39
Neutrophils % 25.9 % (42.2-75.2) L 12/24/24 18:39
Lymphocytes % 29.3 % (20.5-51.1) 12/24/24 18:39
Monocytes % 6.9 % (1.7-9.3) 12/24/24 18:39
Eosinophils % 36.2 % (0-6) H 12/24/24 18:39
Basophils % 0.0 % (0-2) 12/24/24 18:39
Abs Neuts (Manual) 0.6 10^3/uL (1.4-6.5) L* 12/23/24 14:11
Segmented Neutrophils 43 % (42-75) 12/23/24 14:11
Band Neutrophils 7 % (0-3) H 12/23/24 14:11
Lymphocytes (Manual) 39 % (20-51) 12/23/24 14:11
Eosinophils (Manual) 6 % (0-6) 12/23/24 14:11
PT 19.2 Sec (11.4-14.6) H 12/24/24 18:39
INR 1.56 12/24/24 18:39
Lactic Acid 1.3 mmol/L (0.7-2.0) 12/24/24 18:39
Ur Squamous Epith Cells 3-5 /LPF (Few) 12/23/24 14:11
Microbiology Results
Micro:
12/23/24 17:34 Blood Culture - Preliminary
Blood/Venous Gram Stain - Preliminary
12/23/24 17:34 Blood Culture - Preliminary
Blood/Venous Positive culture in progress
Gram Stain - Preliminary
Imaging:
12/24/2024 Renal ultrasound (W/O bladder): Right kidney length is 11.1 cm and left kidney length is 10.3 cm. There is no evidence for pelvicalyceal dilation bilaterally. There is a small simple cyst in the periphery of the left kidney, and this
simple cyst has anterograde millimeters. Echogenicity of the right kidney appears improved when compared to previous ultrasound, and is probably within normal range relative to the liver. Echogenicity of the left kidney is also probably within
normal range. There is no evidence for calculus or solid mass bilaterally. Renal parenchymal thickness appears preserved.
Assessment / Plan
Clinical sepsis
Neutropenia (ANC = 200)
NADIRA on CKD; now on HD
Bacteremia with gram-negative rods; awaiting ID and susceptibility
- source unclear at present
HTN
HLD
Rheumatoid arthritis (maintained on methotrexate)
Hypothyroidism
Anxiety/depression
Cognitive impairment
CKD stage III
GERD
Recommendations:
Continue with empiric meropenem for the present.
- Dose is appropriate for HD
Await further blood culture data including identification and susceptibility.
Repeat blood cultures today on HD
Wean pressors as possible
Would recommend CT abdomen/pelvis when possible to potentially pinpoint source of bacteremia
Follow white count and temperature curve.
Patient remains critically ill, on pressors, in ICU
Care Review
Plan reviewed with: Physician (Critical Care)
--- NOTE | 2024-12-25 08:26 | PTCARENOTE ---
pt awake , slow speech , confused to time and events of hospitalization, ST on monitor , BP goal map 65, she is currently on 24mcg of Levophed , lungs shallow and decreased , urine output oliguria only 25 ml overnight , pt is now a DNR , continuing
with medical management , pt is currently receiving HD
[2024-12-25] MEDS: NSS 1000 IV (08:56)
[2024-12-25] MEDS: TOPROL XL PO (09:26)
[2024-12-25] MEDS: LOPRESSOR 5 MG IV (09:27)
--- NOTE | 2024-12-25 10:11 | CM ---
Addendum entered by Anne Prater 12/25/24 14:17:
hospice referral
Addendum entered by Anne Prater 12/25/24 14:10:
family meeting with physician earlier. Patient family requested to meet with [facility] community relations liaison. CM sent request for Endoscopy Tech to meet with family earlier today.
Original Note:
Patient seen at bedside with physician in ICU. Physician called to patient and daughter requesting them to come to the hospital. VM left for daughter CM will continue to follow for discharge planning needs.
Plan; TBD
--- NOTE | 2024-12-25 10:20 | CON.CAR ---
Consultation
Consultation Request
Date/Time Consultation Requested: 12/25/2024 at 9: 39 AM
Date/Time Consultation Performed: 12/25/2024 at 10:20 AM
Requesting Provider: Maddy Hernandez DO
Performing Provider: Darnell Tucker MD
Reason for Consultation: afib
Medical History
-
Chief Complaint: afib w RVR
History of Present Illness:
79-year-old female with hypertension, hyperlipidemia, rheumatoid arthritis, and cognitive impairment who presents after a fall found to have acute renal failure initiated on hemodialysis, bicytopenia due to methotrexate toxicity and GNR bacteremia
with septic shock. Cardiology is consulted for A-fib with RVR. She presented on 12/23/2024 with acute renal failure and pancytopenia. She has since been initiated on hemodialysis. Nephrology and oncology are following. Her cytopenia is thought to
be due to methotrexate toxicity. Blood cultures are growing GNR's. She is on meropenem and infectious diseases following. She is requiring norepinephrine for vasopressor support. This morning around 9 AM while she was getting hemodialysis, she
went into A-fib with RVR. Heart rates were as high as 150s. When I saw her, she had just been taken off dialysis machine, and she was going in and out of atrial fibrillation. By the time I left the room she was in sinus tachycardia with heart
rate in the 100s.
History was obtained per chart as patient is lethargic and nonresponsive.
Past Medical History
Past Medical History: Other (as above)
Social History
Tobacco: Non-Smoker
Family History
Family History: Reviewed & Not Pertinent
Allergies / Home Medications
Allergy/AdvReac Type Severity Reaction Status Date / Time
iodine Allergy Anaphylaxis Verified 12/23/24 13:29
morphine (Morphine) Allergy Rash Verified 12/23/24 13:29
�Medication �Instructions �Recorded �Confirmed �Type
duloxetine 60 mg capsule,delayed 60 mg PO HS Neurological Condition 01/27/19 12/23/24 History
release
rosuvastatin 40 mg tablet (Crestor) 40 mg PO HS High Cholesterol 01/27/19 12/23/24 History
aripiprazole 5 mg tablet 2.5 mg PO HS Neurological Condition 04/27/23 12/23/24 History
folic acid 1 mg tablet 1 mg PO HS Supplement 04/27/23 12/23/24 History
methimazole 5 mg tablet 2.5 mg PO Q48H@2000 Thyroid 04/27/23 12/23/24 History
cetirizine 10 mg tablet (Zyrtec) 10 mg PO DAILY Allergies 12/23/24 12/23/24 History
diphenhydramine HCl 25 mg capsule 25 mg PO DAILYPRN PRN ALLERGIES 12/23/24 12/23/24 History
(Benadryl)
methotrexate sodium 2.5 mg tablet 15 mg PO MO Autoimmune Disorder 12/23/24 12/23/24 History
metoprolol succinate 25 mg 25 mg PO BID Blood Pressure 12/23/24 12/23/24 History
tablet,extended release 24 hr
(Toprol XL)
mirabegron 50 mg tablet,extended 50 mg PO DAILY Urinary Issue 12/23/24 12/23/24 History
release 24 hr (Myrbetriq)
oxycodone 10 mg tablet 10 mg PO TIDPRN PRN SEVERE PAIN 12/23/24 12/23/24 History
pantoprazole 20 mg tablet,delayed 20 mg PO DAILY GERD 12/23/24 12/23/24 History
release (Protonix)
sennosides 8.6 mg tablet (senna) 8.6 mg PO BIDPRN PRN CONSTIPATION 12/23/24 12/23/24 History
Review of Systems
-
Unable to obtain full review of systems at this time due to: Patient Non Verbal
Physical Exam
Vital Signs
Temp Pulse Resp BP Pulse Ox
98.1 F 134 26 103/67 93
12/25/24 08:00 12/25/24 09:27 12/25/24 08:15 12/25/24 09:27 12/25/24 08:15
Lab Results
12/25/24 01:10
12/25/24 01:10
Physical Exam
General: Other (Lethargic, does not respond to questions)
HEENT: Normocephalic and Anicteric
Respiratory: Non Labored Respirations
Cardiac: Irregular Rhythm (tachycardic)
Impression / Plan
-
79-year-old female with hypertension, hyperlipidemia, rheumatoid arthritis, and cognitive impairment who presents after a fall found to have acute renal failure initiated on hemodialysis, bicytopenia due to methotrexate toxicity and GNR bacteremia
with septic shock. Cardiology is consulted for A-fib with RVR.
Scoreboard Operator: Dr. Dey
Atrial fibrillation with RVR, resolved
-Current rhythm is sinus tachycardia. Had AF w RVR 7/ at 9-10 AM
-Likely due to acute illness with septic shock, GNR bacteremia, and renal failure
-Unable to use rate control agents in the setting of septic shock requiring norepinephrine
-If she goes back into AF with RVR and HR sustained >130bpm, would start IV amiodarone (150mg bolus then drip)
-[id number] at least 4 (age, female, hypertension)
-Hold off on anticoagulation for now given her cytopenia. If critical illness improves and hemoglobin is stable, can consider AC
Septic shock secondary to GNR bacteremia
-Continue vasopressor support for goal MAP >65
-Continue meropenem
-Critical care and ID following
Acute renal failure, on hemodialysis
-Nephrology following
-Trend with treatment of septic shock
Goals of care are being continually readdressed with family given her critical status.
CCT: 37 min
Data Reviewed
-
EKG: Tracing Personally Visualized and interpreted
Radiology: Report Reviewed by me
Medical Tests (Nuc Med, Echo etc): Report Reviewed by me
Labs: Labs Reviewed by me
Critical Care Time (in minutes): 37
--- NOTE | 2024-12-25 10:25 | PTCARENOTE ---
pt receiving HD she became less responsive , her heart rate up to 150-165 , she had an EKG showing afib with RVR , she was given 5mg of IV metoprolol , her Levophed is now down to 15 mcg , Dr Childs at bedside , Dr Fernando aware, pt currently
has very shallow respirations , her sats are 99% she is now on 5L NC , family notified by Dr Fernando , ABG pending
[2024-12-25] MEDS: PROTONIX PO (10:43)
[2024-12-25 11:02] LABS: B.E. 3.2 mmol/L; HCO3 26.9 mmol/L (21-28); O2 Saturation % 98.7 % (94-98); PCO2 37 mmHg (32-35); PO2 102 mmHg (83-108)
--- NOTE | 2024-12-25 11:17 | W.PN.HOSP.TC ---
Addendum entered and electronically signed by Ivone Plascencia MD 12/25/24 14:04:
I saw and evaluated the patient independently. I reviewed the resident�s note and agree with findings and plan as documented by Dr. Hernandez.
GENERAL: well developed, well nourished, obese female in distress--eyes open, moaning--not responding
HEENT:NC/AT--dry mucus membranes--no O2
HEART: regular rate and rhythm, +S1, +S2--tachycardic
LUNGS : clear to auscultation bilaterally
ABDOM: soft, nontender, nondistended, + bowel sounds
EXT: no cyanosis, clubbing, or edema
NEUROLOGIC: confused but nonfocal
NADIRA with metabolic acidosis--possibly due to septic shock--pt immunosuppressed and on MTX for RA--likely multifactorial (prerenal-dehydration, postrenal ruled out, US neg for hydro--renal-from MTX, ATN, NSAID use, etc)--stop--apprec renal--HD
started but pt did not tolerate- no urine output--on pressors--agree with noa--blood cultures positive for gm neg bacilli--changed zosyn to meropenem
septic shock--ongoing pancytopenia with Leukopenia in the setting of Gram Negative Bacilli Infection (Enterobacterales Infection)--zosyn changed to meropenem--apprec ID---hold MTX--apprec heme/onc input--follow cultures
Left shoulder pain--Status post fall--there is documentation of previous fracture that ortho is managing--pt should be in sling--she is NOT in sling here--cannot move arm due to pain--stop CT scan left shoulder
oral ulcers--likely due to MTX--would stop--cont folic acid--magic mouthwash
Rheumatoid Arthritis--STOP methotrexate (home medication)
Chronic Back Pain--limit oxycodone (home medication) due to hypotension
Overactive Bladder--STOP mirabegron
Essential Hypertension--all meds on hold with hypotension
Cognitive Impairment with increasing confusion--possibly due to NADIRA, sepsis, hypotension, or dementia--cont duloxetine, aripiprazole as able
Gastroesophageal Reflux Disease--Continue pantoprazole (home medication)
Hyperlipidemia--Continue rosuvastatin (home medication)
DVT proph
code status--FULL CODE
Call placed to patient's and [id number] that patient is not doing well and that they should come back to the hospital. Spoke with family and explained patient likely will not survive this hospitalization. She appears uncomfortable
and in pain, moaning. Family in full agreement. We discussed transitioning to comfort, giving morphine, and consulting hospice. Family also in agreement with that. They would like to continue with pressors until patient's daughter arrives from
[place].
Total Critical Care Time 40 minutes. I was immediately available to the patient and staff. I personally examined, reviewed labs, diagnostic images/reports, interpretations, treatment plans, discussed patient care with other providers and family
or caregivers (if patient is unable to make decisions), entered orders as appropriate and documented the medical record.
Original Note:
Today's Communication/Plan
-
New episode of rapid afib, cardiology has been consulted. Family is aware of severity of her illness.
Assessment / Plan
Assessment / Plan
Assessment
This is an 79 y/o female with pmhx of Hypertension, Rheumatoid Arthritis on methotrexate, mouth ulcers, CKD 3b, cognitive impairment and recent increasing confusion who presented to the ED on 12/23 following a fall. She was found to have critically
low white blood cell counts, and blood cultures were positive for gram negative bacilli.
Plan
Status post fall
-Pt on Benadryl for allergies. She should stop this medication and be advised that this can contribute to falls
-Ordered CT w/o contrast of left upper extremity yesterday. Patient currently not stable enough for non-essential imaging.
Septic Shock with Enterobacterales Infection
-Will closely follow blood cultures. Current cultures positive for Enterobacterales
-Patient now on 4mg Levophed
-Patient currently on Meropenem
-Will re-evalute antibiotic coverage once blood cultures return
NEW atrial fibrillation
-Episode of atrial fibrillation with RVR was reported by the sales support consultant, who gave Lopressor and Cardizem. She converted successfully back to sinus tachycardia.
-Consulted cardiology
Rheumatoid Arthritis
-STOP methotrexate (home medication)
Chronic Back Pain
-Continue oxycodone (home medication)
Overactive Bladder
-STOP mirabegron
Acute on Chronic Kidney Disease 3B
-Possible prerenal (infection) vs intrarenal (history of Motrin use) vs postrenal (Mirabegron) cause
-Baseline creatinine between 1.2-1.5, 7.1 on admission
-Patient received HD today
-Will reassess CMP and CBC after completion of HD
-Holding mirabegron
Hypertension
-Patient currently with hypotension in the setting of her infection
-HOLD metoprolol (home medication) until BP improves (Current parameters: hold if SBP <120)
Cognitive Impairment with increasing confusion
-Continue duloxetine, aripiprazole
Gastroesophageal Reflux Disease
-Continue pantoprazole (home medication)
Hyperlipidemia
-Continue rosuvastatin (home medication)
Anticipated Discharge: > 48 hours
Subjective/Interval History
-
Date of Service: December 25, 2024
Patient was recieving dialysis when I arrived. While she initially made eye contact and said, 'I remember you from yesterday,', she did not offer any further words during our conversation. She also was not able to follow instructions such as taking
deep breaths or asking her to open her mouth. This is marked change from yesterday where, while confused, she was able to engage in conversation, answer questions and follow some commands. Per her ICU nurse, she has been like this overnight.
Objective Data
-
Labs:
Laboratory Results
12/25/24 12/25/24 12/25/24
01:10 10:08 10:40
WBC 0.6 L*
Hgb 8.0 L
Hct 22.7 L
Plt Count 153
HCO3 Pending 26.9
Sodium 131 L
Potassium 4.5
Chloride 103
Carbon Dioxide 14 L*
BUN 102 H*
Creatinine 7.1 H*
Glucose 111 H
Calcium 7.3 L D
Vital Signs:
Vital Signs
Temp Pulse Resp BP Pulse Ox
98.1 F 134 26 103/67 93
12/25/24 08:00 12/25/24 09:27 12/25/24 08:15 12/25/24 09:27 12/25/24 08:15
I&O
12/24/24 12/25/24 12/26/24
06:59 06:59 06:59
Intake Total 3445.0 / 3635.0 710.6 / 710.6
Output Total 220 / 220 40 / 40
Balance 3225.0 / 3415.0 670.6 / 670.6
Review of Systems
-
Unable to obtain full review of systems at this time due to: Acuity (Patient did not respond to any questions. ROS could not be performed.)
History Source: Patient
All other systems: Not reviewed unless documented
Physical Exam
-
General: Well Developed and Obese
HEENT: Normocephalic and Atraumatic
Respiratory: Other (Auscultation limited by patient unable to follow commands including to take deep breaths or sit upright. Anterior and Axillary auscultation sites sounded clear)
Cardiac: Regular Rhythm and S1/S2
Skin: Warm and Dry
Neuro: Awake (NOT alert)
[2024-12-25 11:33] LABS: Glucose - Point of Care 90 mg/dl (70-99)
--- NOTE | 2024-12-25 11:59 | W.PN.NEPH.PH ---
Today's Communication / Plan
-
Status post dialysis dialysis again tomorrow
Assessment/Plan
-
Assessment
NADIRA with baseline creatinine of 1.3
azotemia
Aphthous ulceration
Poor oral intake
Hyperkalemia
Anion gap metabolic acidosis
Rheumatoid arthritis
Leukopenia
Anemia
Hypertension
Plan
Off NSAIDs
4+ albumin
Renal ultrasound no obstructive pathology/bladder scan 130 mL
Worsening clinical status hypotensive
Patient is anuric with no improvement in renal function
Patient be transferred to higher level of care
Oncology noted= neutropenia and anemia platelets stable chronic methotrexate
Acute hemodialysis today tolerated treatment with SVT towards the end of treatment
Overall prognosis poor
Dialysis again tomorrow
Discussed with critical care team

33 minutes critical care time
-
-
Date of Service: December 25, 2024
CC / HPI / ROS
-
Chief Complaint:
Acute kidney injury
History of Present Illness:
Acute on chronic kidney injury on chronic methotrexate and NSAID use
Review of Systems:
Worsening mental status unresponsive
Anuric
On room air
Labs
-
Labs:
WBC 0.6 10^3/uL (4.8-10.8) L* 12/25/24 01:10
RBC 2.56 10^6/uL (4.20-5.40) L 12/25/24 01:10
Hgb 8.0 g/dL (12.0-16.0) L 12/25/24 01:10
Hct 22.7 % (37.0-47.0) L 12/25/24 01:10
Plt Count 153 10^3/uL (130-400) 12/25/24 01:10
Sodium 131 mmol/L (135-145) L 12/25/24 01:10
Potassium 4.5 mmol/L (3.5-5.1) 12/25/24 01:10
Chloride 103 mmol/L (98-107) 12/25/24 01:10
Carbon Dioxide 14 mmol/L (22-30) L* 12/25/24 01:10
BUN 102 mg/dl (7-17) H* 12/25/24 01:10
Creatinine 7.1 mg/dL (0.6-1.0) H* 12/25/24 01:10
eGFR 5.39 12/25/24 01:10
Glucose 111 mg/dl (70-99) H 12/25/24 01:10
Calcium 7.3 mg/dl (8.4-10.2) L D 12/25/24 01:10
Phosphorus 5.1 mg/dl (2.5-4.5) H 12/24/24 18:39
Albumin 2.5 g/dl (3.5-5.0) L 12/24/24 18:39
Albumin Cancelled 12/24/24 18:39
Physical Exam
-
Vital Signs:
Vital Signs
Temp Pulse Resp BP Pulse Ox
97.9 F 134 26 103/67 93
12/25/24 11:20 12/25/24 09:27 12/25/24 08:15 12/25/24 09:27 12/25/24 08:15
--- NOTE | 2024-12-25 12:01 | W.PN.NEPH.HD ---
Assessment
-
Treatment tolerated patient seen towards end of treatment had SVT treatment was stopped 10 minutes early
Progress Note - Hemodialysis
-
Date of Service: December 25, 2024
Duration: 45 minutes and 2 hours
Potassium Bath: 2
Calcium Bath: 2.5
Opti-Dialyzer: 160
Blood Flow: 300
Dialysate Flow: 600
Heparin: No
EPO: No
[2024-12-25] MEDS: MORPHINE SULFATE 1 MG IV ×2 (12:32→14:04)
--- NOTE | 2024-12-25 12:46 | PTCARENOTE ---
pt family at bedside , ongoing discussions with Dr Fernando and goals of care , decision to make patient comfort care and consult hospice , she continues to be obtunded , opens eyes with groaning , waiting for more family members before begining
comfort care protocol , Morris at bedside
--- NOTE | 2024-12-25 14:30 | HOSPNOTE ---
Spoke with spouse and family and explained hospice and the philosophy. The family is in agreement and the patient will be inpatient hospice. The patient is requiring morphine and ativan for shortness of breath, pain and agitation. Admissions was
called and hospice chart will be created. Consents are signed. Attending and CM aware of plan.
--- NOTE | 2024-12-25 15:26 | PTCARENOTE ---
all family present now , pt family in discission with Dr Fernando and hospice nursing , pt is to transition to comfort care and hospice
--- NOTE | 2024-12-25 17:27 | W.DCSUMMARY ---
Addendum entered and electronically signed by Ivone Plascencia MD 12/26/24 07:11:
Read, reviewed, and agree. See same day progress note for additional details. Time spent coordinating care, DC planning, review of DC plan of care with resident, transition of care, review of records in EMR, med rec, consults, notes, d/w
consultants, nursing, family, and CM = 45 minutes
Original Note:
Discharge Summary
Discharge Data
Date of Admission: 12/23/24
Date of Discharge: 12/25/24
-
Pending Results: No
Hospital Course
This is an 79 y/o female with pmhx of Hypertension, Rheumatoid Arthritis on methotrexate, mouth ulcers, CKD 3b, cognitive impairment and recent increasing confusion who presented to the ED on 12/23 following a fall onto her left shoulder, which
previously had been replaced. On admission, labs revealed low WBC of 1.3, an anion gap metabolic acidosis with an anion gap of 19, and an NADIRA with a creatinine of 7.1. She was started on sterile water with bicarbonate. Her WBC count continued to
decrease to 0.6 on 12/24, and her creatinine increased to 7.3. She became hypotensive, and her blood pressure did not improve despite fluid resuscitation. Her blood cultures revealed infection with gram negative bacilli, at which point she was
started on Zosyn. Nephrology was consulted and recommended dialysis, though not before starting levophed for her persistent hypotension. She was transferred to the ICU. Her antibiotics were switched to meropenem when her blood cultures grew
enterobacterales. She received hemodialysis on 12/25/2024, but 10 minutes prior to the end of the treatment she developed SVT. She was given loppressor and cardizem. Despite the addition of these medications she remained hemodynamically unstable. The
patient�s family was contacted and agreed to transfer the patient to hospice, though they would continue levophed until the patient�s daughter arrived from [place]. The daughter arrived, and the patient was discharged to our [facility] hospice
service on 12/25/2024.
Discharge Plan
-
Patient Disposition: Hospice - Inpatient DH
Discharge Orders:
Discharge Patient (As Directed); Ordered 12/25/24
Ordered By: Ivone Plascencia
Discharge Date and Time
Discharge Date/Time: 12/25/24 15:31
Print Language: GREEK
[2024-12-25 19:52] LABS: Hepatitis B Surface Antigen Negative (Negative)
[2024-12-25 20:11] LABS: Hepatitis C Antibody Negative (Negative)
[2024-12-26 23:34] LABS: Methotrexate, Sensitive 0.83 umol/L
== END 2024-12-25 15:31 | disposition hospice, inpatient (51) | DRG 871 ==
LOC: ICU 18:04
PROVIDERS: Emergency Medicine; Internal Medicine Nephrology; Nurse Practitioner Acute Care; Physician Assistant Medical; Radiology Vascular & Interventional Radiology; ADMITTING PHYSICIAN Hospitalist; ATTENDING PHYSICIAN Internal Medicine; CONSULT PHYSICIAN Internal Medicine Critical Care Medicine; CONSULT PHYSICIAN Internal Medicine Infectious Disease; CONSULT PHYSICIAN Specialist; EMERGENCY PHYSICIAN Emergency Medicine; OTHER PHYSICIAN Internal Medicine Hematology & Oncology; OTHER PHYSICIAN Student in an Organized Health Care Education/Training Program
PROC: 05HM33Z Insertion of Infusion Device into Right Internal Jugular Vein, Percutaneous Approach (ICD-10-PCS; 2024-12-24)
PROC: B543ZZA Ultrasonography of Right Jugular Veins, Guidance (ICD-10-PCS; 2024-12-24)
PROC: 5A1D70Z Performance of Urinary Filtration, Intermittent, Less than 6 Hours Per Day (ICD-10-PCS; 2024-12-25)
DX: A41.9 Sepsis, unspecified organism (principal); R65.21 Severe sepsis with septic shock; N17.9 Acute kidney failure, unspecified; E87.20 Acidosis, unspecified; D61.818 Other pancytopenia; E87.1 Hypo-osmolality and hyponatremia; F11.20 Opioid dependence, uncomplicated; M06.9 Rheumatoid arthritis, unspecified; W19.XXXA Unspecified fall, initial encounter; K12.0 Recurrent oral aphthae; G89.29 Other chronic pain; N32.81 Overactive bladder; K21.9 Gastro-esophageal reflux disease without esophagitis; E78.00 Pure hypercholesterolemia, unspecified; I12.9 Hypertensive chronic kidney disease with stage 1 through stage 4 chronic kidney disease, or unspecified chronic kidney disease; N18.32 Chronic kidney disease, stage 3b; Z11.52 Encounter for screening for COVID-19; E05.90 Thyrotoxicosis, unspecified without thyrotoxic crisis or storm; F32.A Depression, unspecified; F41.9 Anxiety disorder, unspecified; Z96.612 Presence of left artificial shoulder joint; Z96.653 Presence of artificial knee joint, bilateral; Z91.041 Radiographic dye allergy status; Z88.5 Allergy status to narcotic agent; S42.92XD Fracture of left shoulder girdle, part unspecified, subsequent encounter for fracture with routine healing; E87.5 Hyperkalemia; Z79.631 Long term (current) use of antimetabolite agent; Z80.3 Family history of malignant neoplasm of breast; E03.9 Hypothyroidism, unspecified; E66.01 Morbid (severe) obesity due to excess calories; Z68.38 Body mass index [BMI] 38.0-38.9, adult; E83.51 Hypocalcemia; G25.81 Restless legs syndrome; I48.91 Unspecified atrial fibrillation; R62.7 Adult failure to thrive; T45.1X5A Adverse effect of antineoplastic and immunosuppressive drugs, initial encounter; Z79.899 Other long term (current) drug therapy; Z80.42 Family history of malignant neoplasm of prostate; Z90.710 Acquired absence of both cervix and uterus
CPT/HCPCS: 36556; 36600; 51701; 71045; 76775; 76937; 80048; 80053; 80204; 81003; 81015; 82570; 82607; 82728; 82746; 82784; 82805; 82962; 83010; 83521; 83540; 83550; 83605; 83615; 83735; 84100; 84155; 84156; 84165; 84300; 85025; 85027; 85045; 85610; 85730; 86334; 86704; 86706; 86803; 86850; 86900; 86901; 87040; 87077; 87154; 87186; 87205; 87340; 87811; 93005; 96361; 96374; 97163; 97167; 99285; C1750; P9047

== ENCOUNTER 2024-12-25 15:31 | Inpatient (IN) | payer OTHER, SELFPAY ==
[2024-12-25] MEDS: MORPHINE 100 IV (16:01)
[2024-12-25] MEDS: MORPHINE SULFATE 2 MG IV ×6 (16:06→21:50)
--- NOTE | 2024-12-25 16:16 | PTCARENOTE ---
pt now on morphing gtt as per recommendations , family at bedside , comfort measures maintained
[2024-12-25] MEDS: VALIUM INJECTION 2 MG IV (16:32)
--- NOTE | 2024-12-25 16:32 | CM ---
Patient now for hospice and Liaison working with patient and family. Referral sent and accepted to [facility] hosp[facility]. All family members are present at this time. CM will continue to follow for discharge planning needs.
Plan hospice
--- NOTE | 2024-12-25 16:47 | PTCARENOTE ---
pt to transfer to room 2137 , report given to receiving RN , family aware of room change
--- NOTE | 2024-12-25 17:28 | HPS.HSE ---
Addendum entered and electronically signed by Ivone Plascencia MD 12/26/24 07:16:
LATE ENTRY: I did see the patient on 12/25/24
I personally performed a history and physical exam of the patient and discussed management with the resident. I reviewed the resident's note and agree with the documented findings and plan of care HPI/CC.
GENERAL: well developed, well nourished, female in distress--eyes open, moaning
HEENT: NC/AT--O2 NC
HEART: irreg irreg, tachy
LUNGS : clear to auscultation bilaterally
ABDOM: soft, nontender, nondistended, + bowel sounds
EXT: no cyanosis, clubbing, or edema
NEUROLOGIC: not responsive
: [place] with no urine
septic shock, NADIRA, immunosuppressed with pancytopenia (neutropenia)--ADMIT to inpt hospice--comfort measures, morphine drip
other contributing factors:
Essential HTN
RA with oral ulcers from MTX use
CKD stage 3
cognitive impairment
code status--DNR
Original Note:
Family Physician
-
Family Physician: INTERVIEWE UNKNOWN - PT NOT
Chief Complaint
-
Septic Shock
History of Present Illness
This is an 79 y/o female with pmhx of Hypertension, Rheumatoid Arthritis on methotrexate, mouth ulcers, CKD 3b, cognitive impairment and recent increasing confusion who presented to the ED on 12/23 following a fall onto her left shoulder, which
previously had been replaced. On admission, labs revealed low WBC of 1.3, an anion gap metabolic acidosis with an anion gap of 19, and an NADIRA with a creatinine of 7.1. She was started on sterile water with bicarbonate. Her WBC count continued to
decrease to 0.6 on 12/24, and her creatinine increased to 7.3. She became hypotensive, and her blood pressure did not improve despite fluid resuscitation. Her blood cultures revealed infection with gram negative bacilli, at which point she was
started on Zosyn. Nephrology was consulted and recommended dialysis, though not before starting levophed for her persistent hypotension. She was transferred to the ICU. Her antibiotics were switched to meropenem when her blood cultures grew
enterobacterales. She received hemodialysis on 12/25/2024, but 10 minutes prior to the end of the treatment she developed SVT. She was given loppressor and cardizem. Despite the addition of these medications she remained hemodynamically unstable. The
patient�s family was contacted and agreed to transfer the patient to hospice, though they would continue levophed until the patient�s daughter arrived from [place]. The daughter arrived, and the patient has been admitted to this hospital's hospice
service on 12/25/2024.
Medical History
Past Medical History
Past Medical History: Reports Arrhythmia, CHF, HTN and Psychiatric
Additional Past Medical History:
Rheumatoid arthritis, mouth ulcers,
Past Surgical History: Reports Orthopedic (Left shoulder replacement) and Other (Limited by patient acuity)
Additional Past Surgical History:
Left shoulder replacement
Social History
Unable to obtain full social history at this time due to: Acuity
Personal:
Living: With Family
Family History
Family History: Not pertinent
Allergies / Home Medications
Allergies reflects when Allergies were last updated in [employer].
Home Medications with original date entered in [employer]
Allergy/Medication List:
Allergies
Allergy/AdvReac Type Severity Reaction Status Date / Time
iodine Allergy Anaphylaxis Verified 12/23/24 13:29
morphine (Morphine) Allergy Rash Verified 12/23/24 13:29
Home Medications
duloxetine 60 mg capsule,delayed release 60 mg PO HS Neurological Condition 01/27/19
rosuvastatin 40 mg tablet (Crestor) 40 mg PO HS High Cholesterol 01/27/19
aripiprazole 5 mg tablet 2.5 mg PO HS Neurological Condition 04/27/23
folic acid 1 mg tablet 1 mg PO HS Supplement 04/27/23
methimazole 5 mg tablet 2.5 mg PO Q48H@1999 Thyroid 04/27/23
cetirizine 10 mg tablet (Zyrtec) 10 mg PO DAILY Allergies 12/23/24
diphenhydramine HCl 25 mg capsule (Benadryl) 25 mg PO DAILYPRN PRN ALLERGIES 12/23/24
methotrexate sodium 2.5 mg tablet 15 mg PO MO Autoimmune Disorder 12/23/24
metoprolol succinate 25 mg tablet,extended release 24 hr (Toprol XL) 25 mg PO BID Blood Pressure 12/23/24
mirabegron 50 mg tablet,extended release 24 hr (Myrbetriq) 50 mg PO DAILY Urinary Issue 12/23/24
oxycodone 10 mg tablet 10 mg PO TIDPRN PRN SEVERE PAIN 12/23/24
pantoprazole 20 mg tablet,delayed release (Protonix) 20 mg PO DAILY GERD 12/23/24
sennosides 8.6 mg tablet (senna) 8.6 mg PO BIDPRN PRN CONSTIPATION 12/23/24
If medication reconciliation has not been performed, why?: Unresponsive
Review of Systems
-
Unable to obtain full review of systems at this time due to: Acuity
A 12 point ROS was completed and negative except as noted: No
Physical Exam
Physical Exam
General: Appears in Distress, Appears Chronically Ill and Obese
HEENT: NormoCephalic
Impression/Plan
-
IMPRESSION:
This is an 79 y/o female with pmhx of Hypertension, Rheumatoid Arthritis on methotrexate, mouth ulcers, CKD 3b, cognitive impairment and recent increasing confusion who presented this hospice service on 12/25/2024 for septic shock and acute kidney
failure.
PLAN:
Family at bedside
Discontinue levophed
Maintain comfort measures
Continue anxiolytics (Diazepam), antiemetics (zofran) and pain medications (Morphine)
Ensure the dignity and hygiene of the patient
Provided supportive counselling for the family members
[2024-12-25 18:00] VITALS: BP 115/47
[2024-12-25] MEDS: ROBINUL 0.2 MG IV (18:14)
[2024-12-25 19:05] VITALS: BP 102/50
[2024-12-25] MEDS: MORPHINE SULFATE 4 MG IV ×2 (22:21→23:22)
[2024-12-26] MEDS: VALIUM INJECTION 2 MG IV (00:54)
[2024-12-26] MEDS: MORPHINE SULFATE 4 MG IV ×3 (00:55→05:59)
[2024-12-26 07:04] VITALS: BP 90/41
--- NOTE | 2024-12-26 08:39 | W.PN.HOSP.TC ---
Today's Communication/Plan
-
Patient on hospice
Assessment / Plan
Assessment / Plan
Plan
Septic shock due to gram negative bacilli infection/NADIRA
-Family at bedside
-Maintain comfort measures
-Ensure the dignity and hygiene of the patient
-Provided supportive counseling for the family members especially in regards to nonverbal signs of discomfort
-Continue Diazepam, Zofran, Morphine
Other contributing factors:
Essential hypertension
Pancytopenia
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
CKD stage 3
Cognitive impairement
Anticipated Discharge: Today
Subjective/Interval History
-
Date of Service: December 26, 2024
I spoke with the patient�s nurse who reported patient had most recently received PRN morphine at 6AM due to grimacing. Patient was resting in bed when I arrived with her family at the bedside including her and her children. She looked
comfortable and without distress while I was present in the room, and the family was loving and supportive of each other.
Objective Data
-
Vital Signs:
Vital Signs
Temp Pulse Resp BP Pulse Ox
100.7 F H 99 16 90/41 53
12/26/24 07:04 12/26/24 07:04 12/26/24 07:04 12/26/24 07:04 12/26/24 07:04
I&O
12/25/24 12/26/24 12/27/24
06:59 06:59 06:59
Output Total 50 / 50
Balance -50 / -50
Review of Systems
-
Unable to obtain full review of systems at this time due to: Acuity
Physical Exam
-
General: Well Developed, Well Nourished, No Apparent Distress and Obese
HEENT: Normocephalic and Atraumatic
Respiratory: Other (Agonal breaths with occasional long pauses between individual breaths. The longest pause between breaths during my visit was noted to be between 25-30 seconds.)
Cardiac: Regular Rhythm and S1/S2
Skin: Warm and Dry
--- NOTE | 2024-12-26 09:55 | W.PN.DEATH ---
Pronouncement of
-
Called to see patient to pronounce.
No spontaneous heart tones or respirations noted.
Patient not responsive to verbal stimuli.
Patient is pronounced .
Time of : 09:52
Date of : 12/26/24
Cause of : Septic shock due to gram-negative bacilli infection with acute kidney injury
Family Notified: Yes
--- NOTE | 2024-12-26 10:42 | PTCARENOTE ---
Pt . Family at bedside. Hospitalist pronounced pt, time of 951. [facility] called. Family praying w/ geriatric nurse. Emotional support provided.
--- NOTE | 2024-12-26 15:10 | W.DCSUMMARY ---
Addendum entered and electronically signed by Ivone Plascencia MD 12/26/24 15:22:
Read, reviewed, and agree. See same day progress note for additional details. Time spent coordinating care, DC planning, review of DC plan of care with resident, transition of care, review of records in EMR, med rec, consults, notes, d/w
consultants, nursing, family, and CM = 31 minutes
Original Note:
Discharge Summary
Discharge Data
Date of Admission: 12/25/24
Date of Discharge: 12/26/24
-
Pending Results: No
Hospital Course
Helga Khanna an 79 y/o female with pmhx of Hypertension, Rheumatoid Arthritis on methotrexate, mouth ulcers, CKD 3b, cognitive impairment and recent increasing confusion who presented to the ED on 12/23 following a fall onto her left shoulder, which
previously had been replaced. On admission, labs revealed low WBC of 1.3, an anion gap metabolic acidosis with an anion gap of 19, and an NADIRA with a creatinine of 7.1.
She was started on sterile water with bicarbonate. Her WBC count continued to decrease to 0.6 on 12/24, and her creatinine increased to 7.3. She became hypotensive, and her blood pressure did not improve despite fluid resuscitation. Her blood
cultures revealed infection with gram negative bacilli, at which point she was started on Zosyn. Nephrology was consulted and recommended dialysis, though not before starting levophed for her persistent hypotension. She was transferred to the ICU.
Her antibiotics were switched to meropenem when her blood cultures grew enterobacterales. She received hemodialysis on 12/25/2024, but 10 minutes prior to the end of the treatment she developed SVT. She was given Lopressor and Cardizem. Despite the
addition of these medications she remained hemodynamically unstable. The patient�s family was contacted and agreed to transfer the patient to hospice, though they would continue Levophed until the patient�s daughter arrived from [place]. The
daughter arrived, and the patient was admitted to this hospital's hospice service on 12/25/2024. Her family remained at her bedside overnight, and the dignity and hygiene of the patient was maintained.
Helga Khanna at 9:52AM on 12/26/2024.
Discharge Plan
-
Patient Disposition:
Date/Time
Date/Time: 12/26/24 09:52
Discharge Date and Time
Discharge Date/Time: 12/26/24 11:53
Print Language: GRENADIAN
== END 2024-12-26 11:53 | disposition expired | DRG 951 ==
LOC: 2 NORTH 15:31
PROVIDERS: ADMITTING PHYSICIAN Internal Medicine
DX: Z51.5 Encounter for palliative care (principal); A41.50 Gram-negative sepsis, unspecified; R65.21 Severe sepsis with septic shock; N17.9 Acute kidney failure, unspecified; D61.818 Other pancytopenia; I13.0 Hypertensive heart and chronic kidney disease with heart failure and stage 1 through stage 4 chronic kidney disease, or unspecified chronic kidney disease; I47.10 Supraventricular tachycardia, unspecified; E87.20 Acidosis, unspecified; D84.9 Immunodeficiency, unspecified; M06.9 Rheumatoid arthritis, unspecified; K12.1 Other forms of stomatitis; N18.32 Chronic kidney disease, stage 3b; R41.89 Other symptoms and signs involving cognitive functions and awareness; Z66 Do not resuscitate; I50.9 Heart failure, unspecified; Z79.631 Long term (current) use of antimetabolite agent; Z79.891 Long term (current) use of opiate analgesic; Z79.899 Other long term (current) drug therapy